=== PATIENT | male | born 1960 | race Caucasian/White ===

== ENCOUNTER 2020-08-14 21:11 | Inpatient (IN) ==
[2020-08-14] MEDS ORDERED: dexAMETHasone**PF** 10 MG/ML VIAL IV ONE (22:19)
[2020-08-14] MEDS ORDERED: ALBUTEROL HFA 8 GM INHALER INH ONE (22:19)
[2020-08-14] MEDS ORDERED: SODIUM CHLORIDE 0.9% 1000ML 1,000 ML IV ONE (22:21)
[2020-08-14 22:28] LABS: Basophils # (auto) 0.02 K/uL (0-0.2); Basophils % (auto) 0.4 %; Eosinophils # (auto) 0.14 K/uL (0-0.5); Eosinophils % (auto) 2.9 %; Hematocrit (blood only) 43.3 % (42-52); Hemoglobin 15.1 g/dL (14.0-18.0); Immature Granulocytes # (auto) 0.03 K/uL (0.00-0.02); Immature Granulocytes % (auto) 0.6 %; Lymphocytes # (auto) 1.77 K/uL (1.2-3.4); Lymphocytes % (auto) 36.9 %; Mean Corpuscular Hemoglobin 31.6 pg (25-34); Mean Corpuscular Hgb Conc 34.9 g/dL (32-36); Mean Corpuscular Volume 90.6 fL (80-100); Mean Platelet Volume 9.8 fL (7.4-10.4); Monocytes # (auto) 0.45 K/uL (0.11-0.59); Monocytes % (auto) 9.4 %; Neutrophils # (auto) 2.39 K/uL (1.4-6.5); Neutrophils % (auto) 49.8 %; Platelet Count 153 K/uL (130-400); Red Blood Count 4.78 M/uL (4.7-6.1)
--- NOTE | 2020-08-14 22:30 | Emergency Department Note ---
History of Present Illness General Chief complaint: Flu Like Symptoms Stated complaint: SOB, COUGH Time Seen by Provider: 08/14/20 22:00 History of Present Illness This 60 yo presents to the ER complaining of fever, cough, body aches cough and dyspnea for the past week that is still getting worse who has COPD Location: Generalized Quality: Hard to breathe Severity: Moderate Duration: 1 week Timing: Started a week ago Context: Patient was concerned and came in Modifying factors: better with rest; worse with activity Patient states he could barely walk as he became so short of breath. He does not smoke. He follows with pulmonology at [place]. Patient denies chest pain, loss of taste, loss of smell, neck stiffness, abdominal pain, vomiting, diarrhea. He has been around other people positive with Covid this week. He has not received the Covid vaccine. Home Medications Medication Instructions Recorded Confirmed Type albuterol sulfate [ProAir HFA] 2 puff INHALATION QID PRN 05/15/19 08/14/20 History budesonide-formoterol [Symbicort] 2 puff INHALATION BID 05/15/19 08/14/20 History naproxen sodium [Aleve] 440 mg PO BID PRN 08/14/20 08/14/20 History Allergies Allergy/AdvReac Type Severity Reaction Status Date / Time Iodinated Contrast Media Allergy Severe "OMNIPAQUE Verified 08/14/20 21:58 140" -- ANAPHYLAXIS latex Allergy Mild Rash Verified 08/14/20 21:58 aspirin AdvReac Intermediate Bleeding Verified 08/14/20 21:58 locust uriostegui gum Allergy Severe Anaphylaxis Uncoded 08/14/20 21:58 Past Med/Surg History Medical History (Updated 08/15/20 @ 01:40 by Katherine Cabezas PA-C) Asthma Chronic obstructive pulmonary disease inhaler daily/prn Von Willebrand disease Surgical History [place] [facility] [place] History of colonoscopy with polypectomy History of eye surgery remove metal History of lumbar surgery History of sinus surgery History of umbilical hernia repair History of wisdom tooth extraction Family History Sister Family history of diabetes mellitus Brother Family history of diabetes mellitus Grandmother (Paternal) Family history of diabetes mellitus Other No family history of adverse response to anesthesia Social History Smoking Status: Former smoker Second Hand Exposure: Yes (work environment); Hx Alcohol Use: Yes Alcohol type: beer Hx Substance Use: No Preferred Language: Macedonian Communication Ability: Effective Economic Development Manager Required: No Beliefs That Will Affect Care: None Current Living Situation: Significant Other Feels Safe at Home: Yes Assistive Devices: None Review of Systems A total of 10 systems reviewed and were otherwise negative Physical Exam Vital Signs Vital Signs - 24 hr 08/14/20 21:13 08/14/20 22:00 08/14/20 22:09 Temperature 36.4 C L Temperature Source Temporal Artery Scan Pulse Rate 110 H 94 H 85 Pulse Rate from SpO2 Sensor 93 H 87 Respiratory Rate 20 20 23 Respiratory Effort / Characteristics Blood Pressure 134/78 157/69 H Blood Pressure Mean 96 98 Blood Pressure Position Sitting Pulse Oximetry 93 90 91 Oxygen Delivery Method Room Air Room Air Room Air Sepsis Recent Fever Within 48 Hours No Sepsis New/Unexplained Change in Mental Status No Sepsis Action Taken by Nursing No Action Required 08/14/20 22:15 08/14/20 22:16 08/14/20 22:19 Temperature Temperature Source Pulse Rate 96 H 86 Pulse Rate from SpO2 Sensor 96 H 87 Respiratory Rate 26 H 28 H 24 Respiratory Effort / Characteristics Blood Pressure 136/76 Blood Pressure Mean 96 Blood Pressure Position Pulse Oximetry 91 91 91 Oxygen Delivery Method Room Air Room Air Room Air Sepsis Recent Fever Within 48 Hours Sepsis New/Unexplained Change in Mental Status Sepsis Action Taken by Nursing 08/14/20 22:30 08/14/20 22:31 08/14/20 22:45 Temperature Temperature Source Pulse Rate 94 H 88 87 Pulse Rate from SpO2 Sensor 88 89 89 Respiratory Rate 22 17 24 Respiratory Effort / Characteristics Blood Pressure 157/76 H 121/50 L Blood Pressure Mean 103 73 Blood Pressure Position Pulse Oximetry 92 92 94 Oxygen Delivery Method Room Air Room Air Sepsis Recent Fever Within 48 Hours Sepsis New/Unexplained Change in Mental Status Sepsis Action Taken by Nursing 08/14/20 22:46 08/14/20 22:49 08/14/20 23:00 Temperature Temperature Source Pulse Rate 77 87 Pulse Rate from SpO2 Sensor 75 89 Respiratory Rate 26 H 24 23 Respiratory Effort / Characteristics Blood Pressure Blood Pressure Mean Blood Pressure Position Pulse Oximetry 94 89 L 89 L Oxygen Delivery Method Room Air Room Air Sepsis Recent Fever Within 48 Hours Sepsis New/Unexplained Change in Mental Status Sepsis Action Taken by Nursing 08/14/20 23:17 08/14/20 23:19 08/14/20 23:30 Temperature Temperature Source Pulse Rate 85 93 H Pulse Rate from SpO2 Sensor 85 93 H Respiratory Rate 24 24 31 H Respiratory Effort / Characteristics Non-Labored Non-Labored Blood Pressure Blood Pressure Mean Blood Pressure Position Pulse Oximetry 89 L 89 L 92 Oxygen Delivery Method Room Air Room Air Room Air Sepsis Recent Fever Within 48 Hours Sepsis New/Unexplained Change in Mental Status Sepsis Action Taken by Nursing 08/14/20 23:45 08/15/20 00:00 08/15/20 00:30 Temperature Temperature Source Pulse Rate 90 Pulse Rate from SpO2 Sensor 90 Respiratory Rate 23 20 20 Respiratory Effort / Characteristics Non-Labored Non-Labored Blood Pressure Blood Pressure Mean Blood Pressure Position Pulse Oximetry 92 90 93 Oxygen Delivery Method Room Air Room Air Sepsis Recent Fever Within 48 Hours Sepsis New/Unexplained Change in Mental Status Sepsis Action Taken by Nursing VITALS: Vitals are noted on the nurse's note and reviewed by myself. Vital signs tachycardic. GENERAL: Ill-appearing male coughing who appears short of breath. SKIN: The skin was without rashes, erythema, edema, or bruising. There is no tenting of the skin. Capillary reflex less than 2 seconds. HEAD: Normocephalic atraumatic. EARS: External auditory canals clear, tympanic membranes pearly gaspar without erythema or effusion bilaterally. EYES: Pupils equal round and reactive to light and accommodation. Conjunctivae without injection, sclerae without icterus. Extraocular movements intact. NOSE: Patent, turbinates without inflammation or discharge. No sinus tenderness. MOUTH: Mucous membranes mildly dry. Pharynx without erythema or exudate. Uvula midline. Airway patent. Tongue does not deviate. NECK: Supple without nuchal rigidity. No lymphadenopathy. No thyromegaly. Cervical spine is nontender. No JVD. HEART: Mildly tachycardic rate and rhythm LUNGS: Diffuse inspiratory and end expiratory wheezes, no retractions or accessory muscle use. ABDOMEN: Positive bowel sounds x 4. Normal tympanic percussion. Soft, nontender, without masses or organomegaly. Stone sign negative. No guarding or rebound tenderness. No CVA tenderness MUSCULOSKELETAL: No muscle atrophy, erythema, or edema noted. NEURO: Patient was alert and oriented to person place and time. Normal sensation to light and sharp touch. No focal neurological deficits. Course Administered Medications Discontinued Medications Albuterol (Albuterol Hfa 8 Gm Inhaler) 2 puffs INH NOW ONE Stop: 08/14/20 22:20 Last Admin: 08/14/20 22:28 Dose: 2 puffs Documented by: [id number] Dexamethasone Sodium Phosphate (DexamethasonePf 10 Mg/Ml Vial) 10 mg IV NOW ONE Stop: 08/14/20 22:20 Last Admin: 08/14/20 22:28 Dose: 10 mg Documented by: [id number] Sodium Chloride (Nss 1000ml) 1,000 mls @ 999 mls/hr IV .Q1H1M ONE Stop: 08/14/20 23:21 Last Infusion: 08/14/20 23:35 Dose: 0 mls/hr Documented by: [id number] Admin: 08/14/20 22:29 Dose: 999 mls/hr Documented by: [id number] Medical Decision Making Medical Records Attestation: I reviewed the patient's medical records. Home Medications Current Medication List: was personally reviewed by me Laboratory Data Attestation: I reviewed the patient's lab results. Result diagrams: 08/14/20 21:50 08/14/20 21:50 Lab Results 08/14/20 08/14/20 08/14/20 Range/Units 21:50 21:50 21:50 WBC 4.80 (4.8-10.8) K/uL RBC 4.78 (4.7-6.1) M/uL Hgb 15.1 (14.0-18.0) g/dL Hct 43.3 (42-52) % MCV 90.6 (80-100) fL MCH 31.6 (25-34) pg MCHC 34.9 (32-36) g/dL RDW Std Deviation 43.0 (36.4-46.3) fL RDW Coeff of Jil 13.0 (11.5-14.5) % Plt Count 153 (130-400) K/uL MPV 9.8 (7.4-10.4) fL Immature Gran % (Auto) 0.6 % Neut % (Auto) 49.8 % Lymph % (Auto) 36.9 % [place] % (Auto) 9.4 % Eos % (Auto) 2.9 % Baso % (Auto) 0.4 % Neut # (Auto) 2.39 (1.4-6.5) K/uL Lymph # (Auto) 1.77 (1.2-3.4) K/uL [place] # (Auto) 0.45 (0.11-0.59) K/uL Eos # (Auto) 0.14 (0-0.5) K/uL Baso # (Auto) 0.02 (0-0.2) K/uL Immature Gran # (Auto) 0.03 H (0.00-0.02) K/uL PT 10.0 (9.0-12.0) Seconds INR 1.0 (0.9-1.1) APTT 25.4 (21.0-31.0) Seconds PTT Ratio 1.0 Sodium 140 (136-145) mmol/L Potassium 3.3 L (3.5-5.1) mmol/L Chloride 106 (98-107) mmol/L Carbon Dioxide 25 (21-32) mmol/L Anion Gap 9.0 (3-11) BUN 14 (7-18) mg/dl Creatinine 1.04 (0.6-1.4) mg/dl Est Cr Clr Drug Dosing 84.3 ml/min Est GFR ( Amer) 89.4 Est GFR (Non-Af Amer) 77.1 BUN/Creatinine Ratio 13.2 (10-20) Glucose 141 H (70-99) mg/dl Lactate (0.4-2.0) mmol/L Calcium 8.5 (8.5-10.1) mg/dl Magnesium 2.0 (1.8-2.4) mg/dl Total Bilirubin 0.9 (0.2-1) mg/dl AST 25 (15-37) U/L ALT 30 (12-78) U/L Alkaline Phosphatase 72 (45-117) U/L Troponin I < 0.015 (0-0.045) ng/ml Total Protein 6.9 (6.4-8.2) gm/dl Albumin 3.7 (3.4-5.0) gm/dl Globulin 3.2 (2.5-4.0) gm/dl Albumin/Globulin Ratio 1.2 (0.9-2) Specimen Hemolysis Urine Color Urine Appearance (Clear) Urine pH (4.5-7.5) Ur Specific [place] (1.000-1.030) Urine Protein (Negative) Urine Glucose (UA) (Negative) Urine Ketones (Negative) Urine Blood (Negative) Urine Nitrite (Negative) Urine Bilirubin (Negative) Urine Urobilinogen (Negative) Ur Leukocyte Esterase (Negative) COVID-19 Eval Order SARS-CoV-2 (PCR) (Negative) Influenza Type A (PCR) (Neg) Influenza Type B (PCR) (Neg) RSV (RT-PCR) (Neg) 08/14/20 08/14/20 08/14/20 Range/Units 21:50 22:30 22:30 WBC (4.8-10.8) K/uL RBC (4.7-6.1) M/uL Hgb (14.0-18.0) g/dL Hct (42-52) % MCV (80-100) fL MCH (25-34) pg MCHC (32-36) g/dL RDW Std Deviation (36.4-46.3) fL RDW Coeff of Jil (11.5-14.5) % Plt Count (130-400) K/uL MPV (7.4-10.4) fL Immature Gran % (Auto) % Neut % (Auto) % Lymph % (Auto) % [place] % (Auto) % Eos % (Auto) % Baso % (Auto) % Neut # (Auto) (1.4-6.5) K/uL Lymph # (Auto) (1.2-3.4) K/uL [place] # (Auto) (0.11-0.59) K/uL Eos # (Auto) (0-0.5) K/uL Baso # (Auto) (0-0.2) K/uL Immature Gran # (Auto) (0.00-0.02) K/uL PT (9.0-12.0) Seconds INR (0.9-1.1) APTT (21.0-31.0) Seconds PTT Ratio Sodium (136-145) mmol/L Potassium (3.5-5.1) mmol/L Chloride (98-107) mmol/L Carbon Dioxide (21-32) mmol/L Anion Gap (3-11) BUN (7-18) mg/dl Creatinine (0.6-1.4) mg/dl Est Cr Clr Drug Dosing ml/min Est GFR ( Amer) Est GFR (Non-Af Amer) BUN/Creatinine Ratio (10-20) Glucose (70-99) mg/dl Lactate 3.3 H* (0.4-2.0) mmol/L Calcium (8.5-10.1) mg/dl Magnesium (1.8-2.4) mg/dl Total Bilirubin (0.2-1) mg/dl AST (15-37) U/L ALT (12-78) U/L Alkaline Phosphatase (45-117) U/L Troponin I (0-0.045) ng/ml Total Protein (6.4-8.2) gm/dl Albumin (3.4-5.0) gm/dl Globulin (2.5-4.0) gm/dl Albumin/Globulin Ratio (0.9-2) Specimen Hemolysis Urine Color Urine Appearance (Clear) Urine pH (4.5-7.5) Ur Specific [place] (1.000-1.030) Urine Protein (Negative) Urine Glucose (UA) (Negative) Urine Ketones (Negative) Urine Blood (Negative) Urine Nitrite (Negative) Urine Bilirubin (Negative) Urine Urobilinogen (Negative) Ur Leukocyte Esterase (Negative) COVID-19 Eval Order [facility] at [facility] SARS-CoV-2 (PCR) POSITIVE A* (Negative) Influenza Type A (PCR) Negative (Neg) Influenza Type B (PCR) Negative (Neg) RSV (RT-PCR) Negative (Neg) 08/14/20 08/15/20 Range/Units 23:57 00:02 WBC (4.8-10.8) K/uL RBC (4.7-6.1) M/uL Hgb (14.0-18.0) g/dL Hct (42-52) % MCV (80-100) fL MCH (25-34) pg MCHC (32-36) g/dL RDW Std Deviation (36.4-46.3) fL RDW Coeff of Jil (11.5-14.5) % Plt Count (130-400) K/uL MPV (7.4-10.4) fL Immature Gran % (Auto) % Neut % (Auto) % Lymph % (Auto) % [place] % (Auto) % Eos % (Auto) % Baso % (Auto) % Neut # (Auto) (1.4-6.5) K/uL Lymph # (Auto) (1.2-3.4) K/uL [place] # (Auto) (0.11-0.59) K/uL Eos # (Auto) (0-0.5) K/uL Baso # (Auto) (0-0.2) K/uL Immature Gran # (Auto) (0.00-0.02) K/uL PT (9.0-12.0) Seconds INR (0.9-1.1) APTT (21.0-31.0) Seconds PTT Ratio Sodium (136-145) mmol/L Potassium (3.5-5.1) mmol/L Chloride (98-107) mmol/L Carbon Dioxide (21-32) mmol/L Anion Gap (3-11) BUN (7-18) mg/dl Creatinine (0.6-1.4) mg/dl Est Cr Clr Drug Dosing ml/min Est GFR ( Amer) Est GFR (Non-Af Amer) BUN/Creatinine Ratio (10-20) Glucose (70-99) mg/dl Lactate 3.0 H* (0.4-2.0) mmol/L Calcium (8.5-10.1) mg/dl Magnesium (1.8-2.4) mg/dl Total Bilirubin (0.2-1) mg/dl AST (15-37) U/L ALT (12-78) U/L Alkaline Phosphatase (45-117) U/L Troponin I (0-0.045) ng/ml Total Protein (6.4-8.2) gm/dl Albumin (3.4-5.0) gm/dl Globulin (2.5-4.0) gm/dl Albumin/Globulin Ratio (0.9-2) Specimen Hemolysis Urine Color Yellow Urine Appearance Clear (Clear) Urine pH 6.0 (4.5-7.5) Ur Specific [place] 1.021 (1.000-1.030) Urine Protein Negative (Negative) Urine Glucose (UA) Negative (Negative) Urine Ketones Trace H (Negative) Urine Blood Negative (Negative) Urine Nitrite Negative (Negative) Urine Bilirubin Negative (Negative) Urine Urobilinogen Negative (Negative) Ur Leukocyte Esterase Negative (Negative) COVID-19 Eval Order SARS-CoV-2 (PCR) (Negative) Influenza Type A (PCR) (Neg) Influenza Type B (PCR) (Neg) RSV (RT-PCR) (Neg) Imaging Data Attestation: I personally reviewed and interpreted this imaging study as follows: MDM Narrative Prior records/ancillary studies reviewed. Triage Nursing notes reviewed. The patient's history was concerning for fever. Differential diagnosis: Etiologies such as viral syndrome, otitis, pharyngitis, pneumonia, influenza, meningitis, urinary tract infection, sepsis, bacteremia, as well as others were entertained. Physical examination: As above ER treatment provided: An order was placed for continuous cardiac monitoring. The monitor shows a rate of 60-1 50 with a sinus rhythm. IV fluids, albuterol, Decadron On reassessment the patient felt better. Diagnostics interpreted by me: ECG: Ordered for dyspnea EKG: Normal sinus, poor baseline, no acute ST-T wave changes, Q wave in lead III, rate of 102. Impression sinus tachycardia with Q wave in lead III poor baseline interpreted by myself I think arrhythmia is unlikely. EKG shows normal sinus rhythm with no interval abnormalities such as QT prolongation or WPW. There are no findings to suggest Brugada syndrome. Cardiac monitoring in the emergency department reveals no tachycardic or bradycardic dysrhythmia. Hypertrophic cardiomyopathy was considered but there are no clear historical elements pointing toward this. EKG is not suggestive. The QRS voltage is not extremely large and there are no suggestive Q waves. The labs revealed positive Covid Blood cultures pending Elevated lactic Imaging studies: Chest x-ray with patchy infiltrates concerning for Covid pneumonia per my interpretation Consultation: A consultation was placed with Dr. Sorenson. The case was discussed and diagnostics were reviewed. The patient was evaluated in the ER for further treatment. This appears to be consistent with Covid pneumonia who was hypoxic. Patient was given steroids. He was medicated as above. Medicine was consulted. He will be evaluated for admission. Patient was quite short of breath with ambulation.. He did desat. By the evaluation outlined above emergent etiologies such as otitis, pharyngitis, meningitis, urinary tract infection, sepsis, bacteremia, as well as others were deemed relatively unlikely. The pt informed about the findings as listed above. All questions were answered and pleased with the treatment. The chart was completed utilizing [employer] Speech voice recognition software. Grammatical errors, random word insertions, pronoun errors, and incomplete sentences are an occassional consequence of this system due to software limitati ons, ambient noise, and hardware issues. Any formal questions or concerns about the content, text, or information contained within the body of this dictation should be directly addressed to the physician retirement assistant for clarification. Impression & Plan COVID-19, Hypoxemia Discharge Plan Visit Data Chief Complaint: Flu Like Symptoms Stated Complaint: SOB, COUGH ED Provider: Evin Marley ED Midlevel Provider: Katherine Cabezas Discharge Problem: COVID-19, Hypoxemia Patient Disposition: Admitted As Inpatient Condition: Fair Forms Stand Alone Forms: [facility] Health Essentials Prescriptions Prescriptions: No Action albuterol sulfate [ProAir HFA] 90 mcg/actuation Hfa Aerosol Inhaler 2 puff INHALATION QID PRN (Reason: Shortness Of Breath) RF: 0 budesonide-formoterol [Symbicort] 160-4.5 mcg/actuation Hfa Aerosol Inhaler 2 puff INHALATION BID RF: 0 naproxen sodium [Aleve] 220 mg Tablet 440 mg PO BID PRN (Reason: Fever Or Pain) RF: 0 Referrals Referrals: Nahun Donaldson [Primary Care Provider] -
[2020-08-14 22:41] LABS: Partial Thromboplastin Time 25.4 Seconds (21.0-31.0)
[2020-08-14 22:45] LABS: Alanine Aminotransferase 30 U/L (12-78); Albumin Globulin Ratio 1.2 (0.9-2); Albumin Level 3.7 gm/dl (3.4-5.0); Alkaline Phosphatase 72 U/L (45-117); Aspartate Aminotransferase 25 U/L (15-37); BUN Creatinine Ratio 13.2 (10-20); Bilirubin,Total 0.9 mg/dl (0.2-1); Blood Urea Nitrogen 14 mg/dl (7-18); Calcium 8.5 mg/dl (8.5-10.1); Carbon Dioxide 25 mmol/L (21-32); Chloride 106 mmol/L (98-107); Creatinine Clr Calc Pharmacy 84.3 ml/min; Est GFR (African American) 89.4; Est GFR (Non-African American) 77.1; Globulin 3.2 gm/dl (2.5-4.0); Glucose 141 mg/dl (70-99); Potassium 3.3 mmol/L (3.5-5.1); Sodium 140 mmol/L (136-145); Total Protein 6.9 gm/dl (6.4-8.2); Troponin I < 0.015 ng/ml (0-0.045)
[2020-08-14 23:22] LABS: Influenza A virus by PCR Negative (Neg); Influenza B virus by PCR Negative (Neg); RSV by PCR Negative (Neg)
[2020-08-14 23:31] LABS: SARS CoV2 RNA(COVID-19) InHosp POSITIVE (Negative)
[2020-08-15 00:15] LABS: Appearance Urine Clear (Clear); Bilirubin Urine Negative (Negative); Blood Urine Negative (Negative); Color Urine Yellow; Glucose Urine UA Negative (Negative); Ketones Urine Trace (Negative); Leukocyte Esterase Urine Negative (Negative); Nitrite Urine Negative (Negative); Protein Urine Negative (Negative); Specific Gravity Urine 1.021 (1.000-1.030); Urobilinogen Urine Negative (Negative)
--- NOTE | 2020-08-15 01:24 | History & Physical Report ---
Date of Service August 15, 2020 Assessment & Plan (1) COVID-19: 60yo C male with history of COPD presenting with Covid-19. Patient is on appx day 7-8 of symptoms. He is afebrile, HD stable, mildly hypoxic in the ER at 89-90% on room air. -Admit to medical -Maintain isolation precautions, contact and airborne -Check Procalcitonin, BNP, Ferritin, D-dimer, CK, LDH and CRP -Dexamethasone 6mg IV daily -Supplemental O2 as needed to maintain saturations 92% in patient with COPD + Covid -Albuterol PRN -Tylenol PRN -DVT PPX with Lovenox 40mg BID (2) Elevated lactic acid level: Lactate=3. Patient is HD stable. Perhaps secondary to increased WOB and Albuterol use prior to arrival. Patient does not appear septic. He was given 1L NSS -Repeat lactic acid Present on Admission?: Yes (3) Chronic obstructive pulmonary disease: Suspect mild COPD exacerbation in conjunction with Covid-19 infection. Patient is diffusely wheezing on exam, improved after Albuterol -Supplemental O2 as needed to maintain saturation 92% -Dexamethasone 6mg IV daily -Continue Albuterol q hours PRN -Continue Symbicort BID -Combivent QID -Avoid nebs where able F/E/N - Heplock. Monitor electrolytes and replete as needed, K=3.3 - will give 40mEq and repeat labs in AM. Regular diet as tolerated Ppx - Lovenox 40 BID Code - Full per discussion with patient Dispo - Admit to medical Present on Admission?: Yes History of Present Illness Chief Complaint: covid-19 Primary Care Provider: Nahun Donaldson Russell Suarez is a 60yo C male with history of of COPD presenting with Covid- 19. Patient has had fatigue, weakness, body aches, fever/chills and cough ongoing for the last 7-8 days. Today he became more short of breath which prompted him to come to the ER. He was taking his Albuterol quite a lot at home with minimal relief. In the ER patient afebrile, HD stable, NAD. Saturations of 89-90% on room air ER Course: Albuterol HFA, Dexamethasone 10mg IV, NSS x 1L Allergies Allergy/AdvReac Type Severity Reaction Status Date / Time Iodinated Contrast Media Allergy Severe "OMNIPAQUE Verified 08/14/20 21:58 140" -- ANAPHYLAXIS latex Allergy Mild Rash Verified 08/14/20 21:58 aspirin AdvReac Intermediate Bleeding Verified 08/14/20 21:58 locust uriostegui gum Allergy Severe Anaphylaxis Uncoded 08/14/20 21:58 Home Medications Medication Instructions Recorded Confirmed Type albuterol sulfate [ProAir HFA] 2 puff INHALATION QID PRN 05/15/19 08/14/20 History budesonide-formoterol [Symbicort] 2 puff INHALATION BID 05/15/19 08/14/20 History naproxen sodium [Aleve] 440 mg PO BID PRN 08/14/20 08/14/20 History Past Med/Surg History Medical History (Updated 08/15/20 @ 01:22 by Graciela Sorenson DO) Asthma Chronic obstructive pulmonary disease inhaler daily/prn Von Willebrand disease Surgical History History of cardiac cath 2012 @ [facility] [place]--no stents History of colonoscopy with polypectomy History of eye surgery remove metal History of lumbar surgery History of sinus surgery History of umbilical hernia repair History of wisdom tooth extraction Family History Sister Family history of diabetes mellitus Brother Family history of diabetes mellitus Grandmother (Paternal) Family history of diabetes mellitus Other No family history of adverse response to anesthesia Social History Smoking Status: Former smoker Second Hand Exposure: Yes (work environment); Hx Alcohol Use: Yes Alcohol type: beer Hx Substance Use: No Preferred Language: Barbadian Communication Ability: Effective Brand Activation Manager Required: No Beliefs That Will Affect Care: None Current Living Situation: Significant Other Feels Safe at Home: Yes Assistive Devices: None Review of Systems Review of Systems: All systems reviewed & are unremarkable except as noted in HPI & below +weakness +fatigue +body aches +cough +SOB +chest pain with coughing Denies nausea/vomiting/diarrhea/constipation/abdominal pain/loss of taste or sm ell Physical Exam Physical Exam: General: patient resting comfortably, NAD, non-toxic in appearance, AA&O x 4 Skin: warm, dry, intact, no rashes or lesions HEENT: NC/AT, PERRL, EOMI, anicteric sclera, conjunctiva without injection, external ear normal to inspection and nontender, nares patent, moist mucus membranes, dentition intact, no oropharyngeal lesions, neck supple, trachea midline, no LAD, no thyromegaly, no JVD Heart: +S1/S2, regular, no m/r/g Lungs: equal air entry bilaterally, no rales/rhonchi, scattered end-expiratory wheezing Abd: +BS, soft, NT/ND, no masses/organomegaly/ascites Ext: warm, 2+ pulses in UE/LE bilaterally, no clubbing/cyanosis or edema Neuro: nonfocal, patient AA&O x 4, speech intact, no facial droop, moving all extremities on command with equal strength 5/5 Results & Data Results & Data ([facility]) Vital Signs (Past 12 Hours) Vital Signs Temp Pulse Resp BP Pulse Ox 08/15/20 00:30 20 93 08/15/20 00:00 20 90 08/14/20 23:45 90 23 92 08/14/20 23:30 93 H 31 H 92 08/14/20 23:19 24 89 L 08/14/20 23:17 85 24 89 L 08/14/20 23:00 87 23 89 L 08/14/20 22:49 24 89 L 08/14/20 22:46 77 26 H 94 08/14/20 22:45 87 24 121/50 L 94 08/14/20 22:31 88 17 92 08/14/20 22:30 94 H 22 157/76 H 92 08/14/20 22:19 24 91 08/14/20 22:16 86 28 H 91 08/14/20 22:15 96 H 26 H 136/76 91 08/14/20 22:09 85 23 91 08/14/20 22:00 94 H 20 157/69 H 90 08/14/20 21:13 36.4 C L 110 H 20 134/78 93 Laboratory Results Lab Results 08/14/20 08/14/20 08/14/20 Range/Units 21:50 21:50 21:50 WBC 4.80 (4.8-10.8) K/uL RBC 4.78 (4.7-6.1) M/uL Hgb 15.1 (14.0-18.0) g/dL Hct 43.3 (42-52) % MCV 90.6 (80-100) fL MCH 31.6 (25-34) pg MCHC 34.9 (32-36) g/dL RDW Std Deviation 43.0 (36.4-46.3) fL RDW Coeff of Jil 13.0 (11.5-14.5) % Plt Count 153 (130-400) K/uL MPV 9.8 (7.4-10.4) fL Immature Gran % (Auto) 0.6 % Neut % (Auto) 49.8 % Lymph % (Auto) 36.9 % Lyman % (Auto) 9.4 % Eos % (Auto) 2.9 % Baso % (Auto) 0.4 % Neut # (Auto) 2.39 (1.4-6.5) K/uL Lymph # (Auto) 1.77 (1.2-3.4) K/uL Lyman # (Auto) 0.45 (0.11-0.59) K/uL Eos # (Auto) 0.14 (0-0.5) K/uL Baso # (Auto) 0.02 (0-0.2) K/uL Immature Gran # (Auto) 0.03 H (0.00-0.02) K/uL PT 10.0 (9.0-12.0) Seconds INR 1.0 (0.9-1.1) APTT 25.4 (21.0-31.0) Seconds PTT Ratio 1.0 Sodium 140 (136-145) mmol/L Potassium 3.3 L (3.5-5.1) mmol/L Chloride 106 (98-107) mmol/L Carbon Dioxide 25 (21-32) mmol/L Anion Gap 9.0 (3-11) BUN 14 (7-18) mg/dl Creatinine 1.04 (0.6-1.4) mg/dl Est Cr Clr Drug Dosing 84.3 ml/min Est GFR ( Amer) 89.4 Est GFR (Non-Af Amer) 77.1 BUN/Creatinine Ratio 13.2 (10-20) Glucose 141 H (70-99) mg/dl Lactate (0.4-2.0) mmol/L Calcium 8.5 (8.5-10.1) mg/dl Magnesium 2.0 (1.8-2.4) mg/dl Total Bilirubin 0.9 (0.2-1) mg/dl AST 25 (15-37) U/L ALT 30 (12-78) U/L Alkaline Phosphatase 72 (45-117) U/L Troponin I < 0.015 (0-0.045) ng/ml Total Protein 6.9 (6.4-8.2) gm/dl Albumin 3.7 (3.4-5.0) gm/dl Globulin 3.2 (2.5-4.0) gm/dl Albumin/Globulin Ratio 1.2 (0.9-2) Specimen Hemolysis Urine Color Urine Appearance (Clear) Urine pH (4.5-7.5) Ur Specific Franklin (1.000-1.030) Urine Protein (Negative) Urine Glucose (UA) (Negative) Urine Ketones (Negative) Urine Blood (Negative) Urine Nitrite (Negative) Urine Bilirubin (Negative) Urine Urobilinogen (Negative) Ur Leukocyte Esterase (Negative) COVID-19 Eval Order SARS-CoV-2 (PCR) (Negative) Influenza Type A (PCR) (Neg) Influenza Type B (PCR) (Neg) RSV (RT-PCR) (Neg) 08/14/20 08/14/20 08/14/20 Range/Units 21:50 22:30 22:30 WBC (4.8-10.8) K/uL RBC (4.7-6.1) M/uL Hgb (14.0-18.0) g/dL Hct (42-52) % MCV (80-100) fL MCH (25-34) pg MCHC (32-36) g/dL RDW Std Deviation (36.4-46.3) fL RDW Coeff of Jil (11.5-14.5) % Plt Count (130-400) K/uL MPV (7.4-10.4) fL Immature Gran % (Auto) % Neut % (Auto) % Lymph % (Auto) % Lyman % (Auto) % Eos % (Auto) % Baso % (Auto) % Neut # (Auto) (1.4-6.5) K/uL Lymph # (Auto) (1.2-3.4) K/uL Lyman # (Auto) (0.11-0.59) K/uL Eos # (Auto) (0-0.5) K/uL Baso # (Auto) (0-0.2) K/uL Immature Gran # (Auto) (0.00-0.02) K/uL PT (9.0-12.0) Seconds INR (0.9-1.1) APTT (21.0-31.0) Seconds PTT Ratio Sodium (136-145) mmol/L Potassium (3.5-5.1) mmol/L Chloride (98-107) mmol/L Carbon Dioxide (21-32) mmol/L Anion Gap (3-11) BUN (7-18) mg/dl Creatinine (0.6-1.4) mg/dl Est Cr Clr Drug Dosing ml/min Est GFR ( Amer) Est GFR (Non-Af Amer) BUN/Creatinine Ratio (10-20) Glucose (70-99) mg/dl Lactate 3.3 H* (0.4-2.0) mmol/L Calcium (8.5-10.1) mg/dl Magnesium (1.8-2.4) mg/dl Total Bilirubin (0.2-1) mg/dl AST (15-37) U/L ALT (12-78) U/L Alkaline Phosphatase (45-117) U/L Troponin I (0-0.045) ng/ml Total Protein (6.4-8.2) gm/dl Albumin (3.4-5.0) gm/dl Globulin (2.5-4.0) gm/dl Albumin/Globulin Ratio (0.9-2) Specimen Hemolysis Urine Color Urine Appearance (Clear) Urine pH (4.5-7.5) Ur Specific Franklin (1.000-1.030) Urine Protein (Negative) Urine Glucose (UA) (Negative) Urine Ketones (Negative) Urine Blood (Negative) Urine Nitrite (Negative) Urine Bilirubin (Negative) Urine Urobilinogen (Negative) Ur Leukocyte Esterase (Negative) COVID-19 Eval Order CovFluRsv at [facility] SARS-CoV-2 (PCR) POSITIVE A* (Negative) Influenza Type A (PCR) Negative (Neg) Influenza Type B (PCR) Negative (Neg) RSV (RT-PCR) Negative (Neg) 08/14/20 08/15/20 Range/Units 23:57 00:02 WBC (4.8-10.8) K/uL RBC (4.7-6.1) M/uL Hgb (14.0-18.0) g/dL Hct (42-52) % MCV (80-100) fL MCH (25-34) pg MCHC (32-36) g/dL RDW Std Deviation (36.4-46.3) fL RDW Coeff of Jil (11.5-14.5) % Plt Count (130-400) K/uL MPV (7.4-10.4) fL Immature Gran % (Auto) % Neut % (Auto) % Lymph % (Auto) % Lyman % (Auto) % Eos % (Auto) % Baso % (Auto) % Neut # (Auto) (1.4-6.5) K/uL Lymph # (Auto) (1.2-3.4) K/uL Lyman # (Auto) (0.11-0.59) K/uL Eos # (Auto) (0-0.5) K/uL Baso # (Auto) (0-0.2) K/uL Immature Gran # (Auto) (0.00-0.02) K/uL PT (9.0-12.0) Seconds INR (0.9-1.1) APTT (21.0-31.0) Seconds PTT Ratio Sodium (136-145) mmol/L Potassium (3.5-5.1) mmol/L Chloride (98-107) mmol/L Carbon Dioxide (21-32) mmol/L Anion Gap (3-11) BUN (7-18) mg/dl Creatinine (0.6-1.4) mg/dl Est Cr Clr Drug Dosing ml/min Est GFR ( Amer) Est GFR (Non-Af Amer) BUN/Creatinine Ratio (10-20) Glucose (70-99) mg/dl Lactate 3.0 H* (0.4-2.0) mmol/L Calcium (8.5-10.1) mg/dl Magnesium (1.8-2.4) mg/dl Total Bilirubin (0.2-1) mg/dl AST (15-37) U/L ALT (12-78) U/L Alkaline Phosphatase (45-117) U/L Troponin I (0-0.045) ng/ml Total Protein (6.4-8.2) gm/dl Albumin (3.4-5.0) gm/dl Globulin (2.5-4.0) gm/dl Albumin/Globulin Ratio (0.9-2) Specimen Hemolysis Urine Color Yellow Urine Appearance Clear (Clear) Urine pH 6.0 (4.5-7.5) Ur Specific Franklin 1.021 (1.000-1.030) Urine Protein Negative (Negative) Urine Glucose (UA) Negative (Negative) Urine Ketones Trace H (Negative) Urine Blood Negative (Negative) Urine Nitrite Negative (Negative) Urine Bilirubin Negative (Negative) Urine Urobilinogen Negative (Negative) Ur Leukocyte Esterase Negative (Negative) COVID-19 Eval Order SARS-CoV-2 (PCR) (Negative) Influenza Type A (PCR) (Neg) Influenza Type B (PCR) (Neg) RSV (RT-PCR) (Neg) Diagnostic Findings CXR - No acute process Code Status & VTE Plan VTE Prophylaxis Plan VTE Prophylaxis will be ordered: Yes PG Care Time/CCT Total # of Minutes Spent Total Time Spent with Patient: Total time spent is greater than 50% in coordination of care (as documented) at patient's floor/unit and/or counseling patient: Coding Level of Care Code 80099 Initial Inpt Care Lvl 2 Diagnoses COVID-19 U07.1 Elevated lactic acid level R79.89 Chronic obstructive pulmonary disease J44.9
[2020-08-15] MEDS ORDERED: ONDANSETRON INJ 2 MG/ML 2 ML VIAL IV PRN (02:47)
[2020-08-15] MEDS ORDERED: POTASSIUM CHLORIDE CRTAB 20 MEQ TABCR PO STA (02:47)
[2020-08-15] MEDS ORDERED: ACETAMINOPHEN 325 MG TAB PO PRN (02:47)
[2020-08-15] MEDS ORDERED: ALBUTEROL HFA 8 GM INHALER INH PRN (02:56)
[2020-08-15 03:15] LABS: C Reactive Protein < 0.29 mg/dl (0-0.29); Creatine Kinase 121 U/L (39-308); Ferritin 109.4 ng/ml (8-388); Phosphorus 1.8 mg/dl (2.5-4.9)
[2020-08-15 06:35] LABS: D Dimer 470 ug/L FEU (0-500)
[2020-08-15] MEDS: ALBUTEROL HFA 8 GM INHALER INH SCH ×4 (07:24→19:55)
[2020-08-15] MEDS: IPRATROPIUM BROMIDE HFA INHALER INH SCH ×4 (07:24→19:55)
--- NOTE | 2020-08-15 08:18 | XRay Report ---
XR chest 1V portable HISTORY: SEPSIS COMPARISON: Chest 01/09/2019. FINDINGS: A few bibasilar linear and patchy densities. The upper lung zones remain clear. No pleural effusions. No pneumothorax. The heart is normal in size. No evidence for pulmonary edema. IMPRESSION: Bibasilar linear and patchy densities. This is nonspecific and could be due to atelectasis or a pneum onia. ACT 112: Negative or not required by law. Electronically signed by: Alex Melo M.D. 08/15/2020 8:17 AM
[2020-08-15] MEDS: dexAMETHasone 6 MG in SYRINGE 0 ML IV SCH (08:55)
[2020-08-15] MEDS: FLUTICASONE/VILANTEROL 200/25MCG 14 PUFFS/INHALER INH SCH (08:58)
[2020-08-15] MEDS: ENOXAPARIN INJ 40 MG/0.4 ML SYR SQ SCH ×2 (09:33→21:58)
--- NOTE | 2020-08-15 14:34 | Electrocardiogram Report ---
Test Reason : Blood Pressure : / mmHG Vent. Rate : 102 BPM Atrial Rate : 102 BPM P-R Int : 154 ms QRS Dur : 102 ms QT Int : 386 ms P-R-T Axes : 058 038 054 degrees QTc Int : 503 ms Poor data quality, interpretation may be adversely affected Sinus tachycardia with Premature supraventricular complexes Nonspecific ST and T wave abnormality Abnormal ECG No previous ECGs available Confirmed by Oh Becker ([id number]) on 08/15/2020 2:34:07 PM Referred By: REFERRED SELF Confirmed By:Oh Becker
[2020-08-16 07:32] LABS: Basophils # (auto) 0.01 K/uL (0-0.2); Basophils % (auto) 0.1 %; Hematocrit (blood only) 40.6 % (42-52); Hemoglobin 13.9 g/dL (14.0-18.0); Immature Granulocytes # (auto) 0.06 K/uL (0.00-0.02); Immature Granulocytes % (auto) 0.5 %; Lymphocytes # (auto) 1.29 K/uL (1.2-3.4); Lymphocytes % (auto) 11.5 %; Mean Corpuscular Hemoglobin 31.1 pg (25-34); Mean Corpuscular Hgb Conc 34.2 g/dL (32-36); Mean Corpuscular Volume 90.8 fL (80-100); Mean Platelet Volume 10.1 fL (7.4-10.4); Monocytes # (auto) 0.94 K/uL (0.11-0.59); Monocytes % (auto) 8.4 %; Neutrophils # (auto) 8.94 K/uL (1.4-6.5); Neutrophils % (auto) 79.5 %; Platelet Count 165 K/uL (130-400); RDW Coefficient of Variation 13.4 % (11.5-14.5); RDW Standard Deviation 44.5 fL (36.4-46.3); Red Blood Count 4.47 M/uL (4.7-6.1); White Blood Count 11.24 K/uL (4.8-10.8)
[2020-08-16] MEDS: IPRATROPIUM BROMIDE HFA INHALER INH SCH (07:38)
[2020-08-16] MEDS: ALBUTEROL HFA 8 GM INHALER INH SCH (07:38)
[2020-08-16 08:09] LABS: BUN Creatinine Ratio 14.9 (10-20); Calcium 8.3 mg/dl (8.5-10.1); Creatinine Clr Calc Pharmacy 82.7 ml/min; Est GFR (African American) 87.4; Est GFR (Non-African American) 75.4; Potassium 4.1 mmol/L (3.5-5.1)
[2020-08-16] MEDS: ENOXAPARIN INJ 40 MG/0.4 ML SYR SQ SCH (08:18)
[2020-08-16] MEDS: dexAMETHasone 6 MG in SYRINGE 0 ML IV SCH (08:18)
[2020-08-16] MEDS: FLUTICASONE/VILANTEROL 200/25MCG 14 PUFFS/INHALER INH SCH (08:18)
--- NOTE | 2020-08-16 10:57 | Discharge Summary ---
Date of Service August 16, 2020 Admission HPI Per Admitting Provider Russell Suarez is a 60yo C male with history of of COPD presenting with Covid- 19. Patient has had fatigue, weakness, body aches, fever/chills and cough ongoing for the last 7-8 days. Today he became more short of breath which prompted him to come to the ER. He was taking his Albuterol quite a lot at home with minimal relief. In the ER patient afebrile, HD stable, NAD. Saturations of 89-90% on room air ER Course: Albuterol HFA, Dexamethasone 10mg IV, NSS x 1L Principal Diagnosis COVID 19 pneumonia, COPD exacerbation Discharge Exam Constitutional WD/WN, vitals as above + ill appearing and comfortable; no acute distress Neck trachea midline, no thyromegaly Respiratory normal respiratory effort and + cough; no respiratory distress, no labored breathing and not tachypneic Auscultation: + rhonchi and + wheezes (exhalation); no crackles and no rales Cardiovascular RRR, no murmur, no edema Gastrointestinal (Abdomen) normal bowel sounds, soft, nontender, no hepatosplenomegaly Musculoskeletal no cyanosis or clubbing, extremities motor strength 5/5 Skin no rashes, warm and dry Neurologic patellar DTR's 2+ bilat, sensation intact and PERRL, EOMI, accommodation nl, no face palsy, no dysarthria Psychiatric A+Ox3, euthymic affect Lymphatic no cervical or axillary lymphadenopathy Discharge Data Allergies Allergy/AdvReac Type Severity Reaction Status Date / Time Iodinated Contrast Media Allergy Severe "OMNIPAQUE Verified 08/14/20 21:58 140" -- ANAPHYLAXIS latex Allergy Mild Rash Verified 08/14/20 21:58 aspirin AdvReac Intermediate Bleeding Verified 08/14/20 21:58 locust uriostegui gum Allergy Severe Anaphylaxis Uncoded 08/14/20 21:58 Consultations 08/15/20 00:16 ED Decision to Admit Stat Hospital Course (1) COVID-19: 60yo C male with history of COPD presenting with Covid-19. Patient is on appx day 7-8 of symptoms. He is afebrile, HD stable, borderline hypoxic in the ER at 89-90% on room air. treated with dexamethasone 6mg IV daily nebulizers improved quickly, never required oxygen, saturations 92-94% on room air entire visit BNP, D dimer, procalcitonin, LDH all normal discharge to home on dexamethasone 6mg PO daily x 8 more days stay well nourished, well hydrated, well rested Zinc for immune support, Mucinex to break up secretions IS and flutter valve to take home cannot take aspirin due to allergy follow up with PCP in a week told him to monitor for any worsening shortness of breath (2) Elevated lactic acid level: likely due to acute illness suspect the rise to 6 was lab error blood pressure stable throughout, no abdominal pain, no leg pain heart rate stable does not represent sepsis (3) Chronic obstructive pulmonary disease: Suspect mild COPD exacerbation in conjunction with Covid-19 infection. Patient is diffusely wheezing on exam, improved after Albuterol -Supplemental O2 as needed to maintain saturation 92% -Dexamethasone 6mg IV daily -Continue Albuterol q hours PRN -Continue Symbicort BID -Combivent QID -Avoid nebs where able (4) Pneumonia: due to COVID 19 responded well to dexamethasone procalcitonin normal, no need for antibiotics Total Time Total Time Spent Total Time Spent (In Minutes): 32 Discharge Plan Discharge Items Patient Disposition: Home - Self-Care Reason For Visit: COVID 19, HYPOXIA Discharge Diagnosis: COVID 19 pneumonia COPD exacerbation Condition on Discharge: Good Goals: complete 8 more days of dexamethasone stay well nourished, well hydrated, get rest Activity: Resume your previous activity Driving/Machine Use: No limitations Weightbearing: Full weightbearing Non-emergency contact: Primary Care Provider Call non-emergency contact if: you have any medication questions Follow-up/Referrals: Nahun Donaldson [Primary Care Provider] - 08/24/20 10:10 am (one week PLEASE CALL DR [facility] OFFICE AND GIVE THEM YOUR EMAIL ADDRESS, THIS APT IS A TELE-HEALTH APT) Diet: Regular Addtl Attending Provider Instructions: Medications: - DEXAMETHASONE: 6mg daily for 8 more days to complete 10 days total - ZINC: recommend taking 220mg daily, this is over the counter, immune support - MUCINEX: also over the counter, take twice a day to help break up mucous COVID 19 pneumonia, COPD exacerbation never required oxygen, monitored for 36 hours, saturations did drop below 94% so you were started on dexamethasone complete 8 more days of steroids take Zince and Mucinex over the counter use incentive spirometer several times a day and flutter valve several times a day to promote deep breathing and mobilize sputum stay well nourished, well hydrated and get plenty of rest per CDC guidelines, you should remain isolated 10 days from onset of symptoms if you start to feel like you are more short of breath, getting worse instead of better, check your pulse oximetry (you can purchase a finger pulse ox at drug store) if your saturations are less than 88% you should return to the emergency room as stated above, you have been stable here for 36 hours, no further need for hospitalization at this time follow up with PCP in 1-2 weeks Pending Studies at Discharge: No Stand-Alone Forms: [employer], Smoking Cessation Medications and DC Order Prescriptions: New dexamethasone 4 mg tablet 6 mg PO DAILY 8 Days Qty: 12 RF: 0 Continued albuterol sulfate [ProAir HFA] 90 mcg/actuation Hfa Aerosol Inhaler 2 puff INHALATION QID PRN (Reason: Shortness Of Breath) RF: 0 budesonide-formoterol [Symbicort] 160-4.5 mcg/actuation Hfa Aerosol Inhaler 2 puff INHALATION BID RF: 0 naproxen sodium [Aleve] 220 mg Tablet 440 mg PO BID PRN (Reason: Fever Or Pain) RF: 0 Discharge Orders: Discharge Order (Routine); Ordered 08/16/20 Ordered By: Kelton Weaver Admission Data Admit Date/Time: 08/15/20 01:03 Attending Provider: Kelton Weaver Admit Provider: Graciela Sorenson Primary Care Provider: Nahun Donaldson Other Providers: Graciela Sorenson Coding Level of Care Code D/C Day Management >30 mins Diagnoses COVID-19 U07.1 Elevated lactic acid level R79.89 Chronic obstructive pulmonary disease J44.9 Pneumonia J18.9
== END 2020-08-16 13:25 | disposition home or self-care (01) | DRG 177 ==
LOC: ED 21:11 → SUATTDRO 08-15 01:03 → 2S 08-15 01:03 → 2E 08-15 21:50

== ENCOUNTER 2024-07-17 02:30 | Inpatient (IN) ==
[2024-07-17] MEDS: methylPREDNISolone 125 MG/2 ML VIAL IV STA (03:03)
[2024-07-17] MEDS: ACETAMINOPHEN 500 MG TAB PO STA (03:03)
[2024-07-17] MEDS: ALBUT/IPRATROP 3MG/0.5MG NEB 3 ML VIAL NEB STA ×2 (03:03→05:25)
[2024-07-17] MEDS: PIPERACILLIN/TAZOBACTAM 4.5 GM/100 ML BAG IV ONE (03:05)
[2024-07-17] MEDS: SODIUM CHLORIDE 0.9% 1,000 ML IV SCH (03:06)
--- NOTE | 2024-07-17 03:12 | Emergency Department Note ---
History of Present Illness General Chief complaint: Respiratory Problems Stated complaint: HARD TO BREATHE Time Seen by Provider: 07/17/24 02:39 History of Present Illness This 64-year-old male with COPD who currently does not smoke for the past 30 years presents ER for fever, chills, cough, congestion, dyspnea for the past 5 days steadily getting worse. He has tried albuterol with no relief of symptoms. Sats are 88% on room air. Patient denies abdominal pain, vomiting, diarrhea, sore throat. Home Medications Medication Instructions Recorded Confirmed Type acetaminophen 500 mg tablet 1,000 mg PO Q6H PRN Fever Or Pain 08/21/22 08/21/22 History (Tylenol Extra Strength) [id number]-acetaminophen 7.5 30 ml PO UD PRN flu like symptoms 08/21/22 08/21/22 History mg-60 [id number]/30mL oral liqd Allergies Allergy/AdvReac Type Severity Reaction Status Date / Time Iodinated Contrast Media Allergy Severe "OMNIPAQUE Verified 08/21/22 23:54 140" -- ANAPHYLAXIS latex Allergy Mild Rash Verified 08/21/22 23:54 aspirin AdvReac Intermediate Bleeding Verified 08/21/22 23:54 locust uriostegui gum Allergy Severe Anaphylaxis Uncoded 08/21/22 23:54 Past Med/Surg History Problem List (Updated 07/17/24 @ 04:21 by Katherine Cabezas PA-C) Coronavirus infection (Acute) Community acquired pneumonia (Acute) Acute exacerbation of chronic obstructive airways disease (Acute) Pneumonia Hypokalemia COVID-19 (Acute) Chronic obstructive pulmonary disease inhaler daily/prn Von Willebrand disease (Chronic) Neck pain (Acute) Medical History Asthma Chronic obstructive pulmonary disease inhaler daily/prn Elevated lactic acid level Hypoxemia Von Willebrand disease Surgical History [place] of [place] [facility] [place] History of colonoscopy with polypectomy History of eye surgery remove metal History of lumbar surgery History of sinus surgery History of umbilical hernia repair History of wisdom tooth extraction Family History Sister Family history of diabetes mellitus Brother Family history of diabetes mellitus Grandmother (Paternal) Family history of diabetes mellitus Other No family history of adverse response to anesthesia Social History Smoking Status: Never smoker Second Hand Exposure: No; Do You Dip or Chew Tobacco: No; Hx Alcohol Use: Yes Alcohol type: beer Hx Substance Use: No Preferred Language: Japanese Communication Ability: Effective Dragline Operator Required: No Beliefs That Will Affect Care: None Current Living Situation: Spouse Feels Safe at Home: Yes Assistive Devices: None Review of Systems A total of 10 systems reviewed and were otherwise negative Physical Exam Vital Signs Vital Signs - 24 hr 07/17/24 02:33 07/17/24 03:00 07/17/24 03:00 Temperature 38.0 C H Temperature Source Oral Pulse Rate 118 H Pulse Rate [Apical] 101 H Pulse Rhythm Respiratory Rate 20 19 Respiratory Effort / Characteristics Non-Labored Spontaneous Non-Labored Spontaneous Non-Labored Spontaneous Respiratory Depth Normal Deep Normal Respiratory Pattern Regular Regular Regular Blood Pressure 159/92 H Blood Pressure [Left Arm] 100/80 Blood Pressure Mean 114 Blood Pressure Mean [Left Arm] 86 Blood Pressure Position Sitting Pulse Oximetry 91 95 Oxygen Delivery Method Room Air Room Air Room Air Sepsis Recent Fever Within 48 Hours Yes Sepsis New/Unexplained Change in Mental Status N/A Sepsis Action Taken by Nursing No Action Required 07/17/24 03:00 07/17/24 04:03 07/17/24 04:15 Temperature Temperature Source Pulse Rate 101 H 96 H 91 H Pulse Rate [Apical] Pulse Rhythm Regular Respiratory Rate 20 25 H 31 H Respiratory Effort / Characteristics Respiratory Depth Respiratory Pattern Blood Pressure 122/66 107/84 Blood Pressure [Left Arm] Blood Pressure Mean 76 89 Blood Pressure Mean [Left Arm] Blood Pressure Position Pulse Oximetry 94 92 92 Oxygen Delivery Method Room Air Room Air Room Air Sepsis Recent Fever Within 48 Hours Sepsis New/Unexplained Change in Mental Status Sepsis Action Taken by Nursing 07/17/24 04:30 07/17/24 04:32 07/17/24 04:45 Temperature Temperature Source Pulse Rate 88 85 87 Pulse Rate [Apical] Pulse Rhythm Respiratory Rate 23 26 H Respiratory Effort / Characteristics Respiratory Depth Respiratory Pattern Blood Pressure 110/46 L 113/50 L Blood Pressure [Left Arm] Blood Pressure Mean 58 61 Blood Pressure Mean [Left Arm] Blood Pressure Position Pulse Oximetry 92 95 Oxygen Delivery Method Room Air Room Air Sepsis Recent Fever Within 48 Hours Sepsis New/Unexplained Change in Mental Status Sepsis Action Taken by Nursing 07/17/24 05:00 07/17/24 05:15 07/17/24 05:30 Temperature Temperature Source Pulse Rate 83 82 80 Pulse Rate [Apical] Pulse Rhythm Respiratory Rate 24 26 H 16 Respiratory Effort / Characteristics Respiratory Depth Respiratory Pattern Blood Pressure 120/58 L 120/58 L 126/70 Blood Pressure [Left Arm] Blood Pressure Mean 77 67 84 Blood Pressure Mean [Left Arm] Blood Pressure Position Pulse Oximetry 92 92 97 Oxygen Delivery Method Room Air Room Air Room Air Sepsis Recent Fever Within 48 Hours Sepsis New/Unexplained Change in Mental Status Sepsis Action Taken by Nursing 07/17/24 05:45 Temperature Temperature Source Pulse Rate 85 Pulse Rate [Apical] Pulse Rhythm Respiratory Rate 24 Respiratory Effort / Characteristics Respiratory Depth Respiratory Pattern Blood Pressure 128/71 Blood Pressure [Left Arm] Blood Pressure Mean 89 Blood Pressure Mean [Left Arm] Blood Pressure Position Pulse Oximetry 94 Oxygen Delivery Method Room Air Sepsis Recent Fever Within 48 Hours Sepsis New/Unexplained Change in Mental Status Sepsis Action Taken by Nursing VITALS: Vitals are noted on the nurse's note and reviewed by myself. Vital signs febrile. GENERAL: White male coughing who appears short of breath, in no acute distress, nondiaphoretic, well-developed well-nourished. SKIN: The skin was without rashes, erythema, edema, or bruising. There is no tenting of the skin. Capillary reflex less than 2 seconds. HEAD: Normocephalic atraumatic. EARS: External auditory canals clear EYES: Pupils equal round and reactive to light and accommodation. Conjunctivae without injection, sclerae without icterus. Extraocular movements intact. NOSE: Patent, no discharge. MOUTH: Mucous membranes moist. Pharynx without erythema or exudate. Uvula midline. Airway patent. Tongue does not deviate. NECK: Supple without nuchal rigidity. No lymphadenopathy. No thyromegaly. Cervical spine is nontender. No JVD. HEART: Regular rate and rhythm LUNGS: Diffuse inspiratory and end expiratory wheezes. No retractions or accessory muscle use. ABDOMEN: Positive bowel sounds x 4. Normal tympanic percussion. Soft, nontender, without masses or organomegaly. Stone sign negative. No guarding or rebound tenderness. No CVA tenderness MUSCULOSKELETAL: No muscle atrophy, erythema, or edema noted. NEURO: Patient was alert and oriented to person place and time. Normal sensation to light and sharp touch. No focal neurological deficits. Course Administered Medications Discontinued Medications Acetaminophen (Acetaminophen 500 Mg Tab) 1,000 mg PO NOW STA Stop: 07/17/24 02:48 Last Admin: 07/17/24 03:03 Dose: 1,000 mg Documented By: SHEA Albuterol (Albut/Ipratrop 3mg/0.5mg Neb 3 Ml Vial) 3 ml NEB NOW STA; Protocol Stop: 07/17/24 02:47 Last Admin: 07/17/24 03:03 Dose: 3 ml Documented By: SHEA Albuterol (Albut/Ipratrop 3mg/0.5mg Neb 3 Ml Vial) 3 ml NEB NOW STA; Protocol Stop: 07/17/24 04:21 Last Admin: 07/17/24 05:25 Dose: 3 ml Documented By: MARCELA Sodium Chloride (Nss) 1,000 mls @ 999 mls/hr IV .Q1H1M LEVI Stop: 07/17/24 04:00 Last Infusion: 07/17/24 04:30 Dose: Infused Documented By: Admin: 07/17/24 03:06 Dose: 999 mls/hr Documented By: SHEA Piperacillin Sod/Tazobactam Sod (Zosyn) 4.5 gm in 100 mls @ 200 mls/hr IV NOW ONE; Protocol Stop: 07/17/24 03:15 Last Infusion: 07/17/24 03:40 Dose: Infused Documented By: Admin: 07/17/24 03:05 Dose: 200 mls/hr Documented By: SHEA Ibuprofen (Ibuprofen 800 Mg Tab) 800 mg PO NOW STA Stop: 07/17/24 03:33 Last Admin: 07/17/24 05:21 Dose: 800 mg Documented By: MARCELA Methylprednisolone (Methylprednisolone 125 Mg/2 Ml Vial) 125 mg IV NOW STA Stop: 07/17/24 02:47 Last Admin: 07/17/24 03:03 Dose: 125 mg Documented By: SHEA Medical Decision Making Medical Records Attestation: I reviewed the patient's medical records. Home Medications Current Medication List: was personally reviewed by me Laboratory Data Attestation: I reviewed the patient's lab results. 07/17/24 02:57 07/17/24 02:57 Lab Results 07/17/24 07/17/24 Range/Units 02:57 03:02 WBC 7.85 (4.8-10.8) K/ul RBC 5.10 (4.70-6.10) M/uL Hgb 16.1 (14.0-18.0) g/dl Hct 46.8 (42.0-52.0) % MCV 91.8 (80.0-100.0) fL MCH 31.6 (25.0-34.0) pg MCHC 34.4 (32.0-36.0) g/dL RDW Std Deviation 44.0 (36.4-46.3) fL RDW Coeff of Jil 13.0 (11.5-14.5) % Plt Count 212 (130-400) K/uL MPV 9.3 L (9.4-12.4) fL Immature Gran % (Auto) 0.1 % Neut % (Auto) 70.3 % Lymph % (Auto) 21.5 % [place] % (Auto) 6.4 % Eos % (Auto) 1.3 % Baso % (Auto) 0.4 % Neut # (Auto) 5.52 (1.40-6.50) K/uL Lymph # (Auto) 1.69 (1.20-3.40) K/uL [place] # (Auto) 0.50 (0.11-0.59) K/uL Eos # (Auto) 0.10 (0.00-0.50) K/uL Baso # (Auto) 0.03 (0.00-0.20) K/uL Immature Gran # (Auto) 0.01 (0.01-0.20) K/uL VBG pH 7.44 H (7.36-7.41) VBG pCO2 38 (38-50) mmHg VBG pO2 24 mmHg VBG HCO3 26 mmol/L VBG O2 Saturation < 60.0 % VBG Base Excess 1.7 mEq/L Sodium 134 L (136-145) mmol/L Potassium 4.0 (3.5-5.1) mmol/L Chloride 101 (98-107) mmol/L Carbon Dioxide 26 (21-32) mmol/L Anion Gap 7 (3-11) BUN 16 (6-23) mg/dl Creatinine 1.21 (0.6-1.4) mg/dl Est Cr Clr Drug Dosing Not Reportable eGFR 66.45 BUN/Creatinine Ratio 13.2 (10-20) Glucose 95 (70-99(Fasting)) mg/dl Lactate 1.2 (0.4-2.0) mmol/L Calcium 8.9 (8.6-10.3) mg/dl Magnesium 1.8 (1.7-2.4) mg/dl Total Bilirubin 1.4 H (0.2-1.0) mg/dl Direct Bilirubin 0.2 (0-0.2) mg/dl AST 29 (13-39) U/L ALT 21 (7-52) U/L Alkaline Phosphatase 65 (34-104) U/L Troponin I High Sens 2.9 (0-20) pg/ml B-Natriuretic Peptide 29 (0-100) pg/ml Total Protein 8.0 (6.0-8.3) gm/dl Albumin 4.7 (3.4-5.0) gm/dl Procalcitonin 0.08 (0-0.5) ng/ml Adenovirus (PCR) Not Detected (NotDetected) B. pertussis DNA (PCR) Not Detected (NotDetected) B.parapertussis DNA PCR Not Detected (NotDetected) C. pneumoniae DNA (PCR) Not Detected (NotDetected) Coronavirus OC43 (PCR) DETECTED A (NotDetected) Coronavirus HKU1 (PCR) Not Detected (NotDetected) Coronavirus 229E (PCR) Not Detected (NotDetected) SARS-CoV-2 (PCR) Not Detected (NotDetected) Coronavirus NL63 (PCR) Not Detected (NotDetected) Human Metapneumovir PCR Not Detected (NotDetected) Influenza Type A (PCR) Not Detected (NotDetected) Influenza Type B (PCR) Not Detected (NotDetected) M. pneumoniae (PCR) Not Detected (NotDetected) Parainfluenza 1 (PCR) Not Detected (NotDetected) Parainfluenza 2 (PCR) Not Detected (NotDetected) Parainfluenza 3 (PCR) Not Detected (NotDetected) Parainfluenza 4 (PCR) Not Detected (NotDetected) RSV (PCR) Not Detected (NotDetected) Entero/Rhino (PCR) Not Detected (NotDetected) Imaging Data Attestation: I personally reviewed and interpreted this imaging study as follows: Radiologist's Impression: Chest X-Ray 07/17/24 02:46 EXAM: XR chest 1V portable CLINICAL HISTORY: Sepsis TECHNIQUE: An X-ray image of the chest is obtained in AP projection. COMPARISON: 08/21/2022. FINDINGS: Pulmonary Parenchyma: Prominent bronchovascuar markings in bilateral lung donovan. Small opacity is seen in the left lower lung zone. No evidence of pleural effusion or pleural thickening. Heart and Mediastinum: Heart size and shape are normal. No mediastinal widening or masses. No hilar or mediastinal lymphadenopathy. Bony Thorax: Bony thorax appears intact without fractures or deformities. Soft Tissues: Soft tissues overlying the chest wall are unremarkable. IMPRESSION: 1. Prominent perihilar bronchovascular markings. Stable. 2. Small opacity is seen in the left lower lung zone (new). This could be due to infection or inflammatory process. Need clinical correlation. 3. Otherwise, no significant interval changes. Electronically signed by Abdirahman Dean 07-17-2024 06:20 AM MDM Narrative Prior records/ancillary studies reviewed. Triage Nursing notes reviewed. Additional history obtained from family. The patient's history was concerning for fever. Differential diagnosis: Etiologies such as viral syndrome, otitis, pharyngitis, pneumonia, influenza, meningitis, urinary tract infection, sepsis, bacteremia, as well as others were entertained. Physical examination: As above ER treatment provided: An order was placed for continuous cardiac monitoring. The monitor shows a rate of 60-100 with a sinus rhythm per my interpretation. Nebulizer, Solu-Medrol, Zosyn, IV fluids were ordered On reassessment the patient felt better. Diagnostics interpreted by me: ECG: Ordered for dyspnea EKG: Normal sinus, Q waves in the inferior leads, rate of 107. Impression sinus tachycardia Q waves in inferior leads independently interpreted by myself The labs Independently Interpreted by myself revealed no worrisome leukocytosis, stable H&H, VBG reviewed. Negative lactic. Blood cultures pending Positive coronavirus Imaging studies: Imaging was reviewed and concerning for left lower lobe pneumonia per my independent interpretation of the chest x-ray Consultation: A consultation was placed with hospitalist. The case was discussed and diagnostics were reviewed. The patient was evaluated in the ER for further treatment. This appears to be consistent with COPD exacerbation with pneumonia with coronavirus. Patient sats were in the high 80s. He appeared quite short of breath. He was reassessed multiple times. Medicine was consulted case discussed. He will be evaluated for admission. By the evaluation outlined above emergent etiologies such as otitis, pharyngitis, meningitis, urinary tract infection, sepsis, bacteremia, as well as others were deemed relatively unlikely. The pt informed about the findings as listed above. All questions were answered and pleased with the treatment. The chart was completed utilizing [email or web address] Speech voice recognition software. Grammatical errors, random word insertions, pronoun errors, and incomplete sentences are an occassional consequence of this system due to software limitations, ambient noise, and hardware issues. Any formal questions or concerns about the content, text, or information contained within the body of this dictation should be directly addressed to the physician contact center assistant for clarification. Impression & Plan Acute exacerbation of chronic obstructive airways disease, Community acquired pneumonia, Coronavirus infection Discharge Plan Visit Data Chief Complaint: Respiratory Problems Stated Complaint: HARD TO BREATHE ED Provider: Brittani Proctor ED Midlevel Provider: Katherine Cabezas Discharge Problem: Acute exacerbation of chronic obstructive airways disease, Community acquired pneumonia, Coronavirus infection Patient Disposition: Being Evaluated by Hospitalist Condition: Fair Forms Stand Alone Forms: [email or web address] Prescriptions Prescriptions: No Action NyQuil 7.5-60-30-1,000 mg/30 mL Liquid 30 ml PO UD PRN (Reason: flu like symptoms) acetaminophen [Tylenol Extra Strength] 500 mg Tablet 1,000 mg PO Q6H PRN (Reason: Fever Or Pain) Referrals Referrals: Nahun Donaldson [Primary Care Provider] -
[2024-07-17 03:18] LABS: Base Excess VBG 1.7 mEq/L; HCO3 VBG 26 mmol/L; Oxygen Saturation VBG < 60.0 %; PCO2 VBG 38 mmHg (38-50); PO2 VBG 24 mmHg; pH VBG 7.44 (7.36-7.41)
[2024-07-17 03:26] LABS: Basophils # (auto) 0.03 K/uL (0.00-0.20); Basophils % (auto) 0.4 %; Eosinophils % (auto) 1.3 %; Hematocrit (blood only) 46.8 % (42.0-52.0); Hemoglobin 16.1 g/dl (14.0-18.0); Immature Granulocytes # (auto) 0.01 K/uL (0.01-0.20); Immature Granulocytes % (auto) 0.1 %; Lymphocytes # (auto) 1.69 K/uL (1.20-3.40); Lymphocytes % (auto) 21.5 %; Mean Corpuscular Hemoglobin 31.6 pg (25.0-34.0); Mean Corpuscular Hgb Conc 34.4 g/dL (32.0-36.0); Mean Corpuscular Volume 91.8 fL (80.0-100.0); Mean Platelet Volume 9.3 fL (9.4-12.4); Monocytes % (auto) 6.4 %; Neutrophils # (auto) 5.52 K/uL (1.40-6.50); Neutrophils % (auto) 70.3 %; Platelet Count 212 K/uL (130-400); White Blood Count 7.85 K/ul (4.8-10.8)
[2024-07-17 03:43] LABS: Alanine Aminotransferase 21 U/L (7-52); Albumin Level 4.7 gm/dl (3.4-5.0); Alkaline Phosphatase 65 U/L (34-104); Anion Gap 7 (3-11); Aspartate Aminotransferase 29 U/L (13-39); BUN Creatinine Ratio 13.2 (10-20); Bilirubin Direct 0.2 mg/dl (0-0.2); Bilirubin,Total 1.4 mg/dl (0.2-1.0); Blood Urea Nitrogen 16 mg/dl (6-23); Calcium 8.9 mg/dl (8.6-10.3); Carbon Dioxide 26 mmol/L (21-32); Chloride 101 mmol/L (98-107); Glucose 95 mg/dl (70-99(Fasting)); Magnesium 1.8 mg/dl (1.7-2.4); Sodium 134 mmol/L (136-145)
[2024-07-17 03:48] LABS: Troponin I High Sensitivity 2.9 pg/ml (0-20)
[2024-07-17 04:05] LABS: Adenovirus PCR Not Detected (NotDetected); Bordetella parapertussis PCR Not Detected (NotDetected); Bordetella pertussis PCR Not Detected (NotDetected); Chlamydia pneumoniae PCR Not Detected (NotDetected); Coronavirus 229E PCR Not Detected (NotDetected); Coronavirus CoV-2 (COVID19)PCR Not Detected (NotDetected); Coronavirus HKU1 PCR Not Detected (NotDetected); Coronavirus NL63 PCR Not Detected (NotDetected); Coronavirus OC43PCR DETECTED (NotDetected); Human Metapneumovirus PCR Not Detected (NotDetected); Influenza A PCR Not Detected (NotDetected); Influenza B PCR Not Detected (NotDetected); Mycoplasma pneumoniae PCR Not Detected (NotDetected); Parainfluenza Virus 1 PCR Not Detected (NotDetected); Parainfluenza Virus 2 PCR Not Detected (NotDetected); Parainfluenza Virus 3 PCR Not Detected (NotDetected); Parainfluenza Virus 4 PCR Not Detected (NotDetected); Respiratory Syncytial VirusPCR Not Detected (NotDetected); Rhinovirus/Enterovirus PCR Not Detected (NotDetected)
--- NOTE | 2024-07-17 04:21 | Emergency Department Note ---
ED Visit Note I was consulted by the Advanced Practice Provider. I approved the management plan and take responsibility for the patient management. This includes the aspects of: -History/Physica/ -MDM -I independently interpreted the following studies:Studies and results .
--- NOTE | 2024-07-17 04:45 | History & Physical Report ---
Date of Service July 17, 2024 Assessment & Plan (1) Coronavirus infection: (2) Acute exacerbation of chronic obstructive airways disease: (3) Chronic obstructive pulmonary disease: Plan Pt is a 64 yo male with a past med hx of COPD not on oxygen at baseline and documented hx of vWBD who presents to the hospital on 07/17 for URI symptoms for 4-5 days and worsening SOB found to be positive for OG coronavirus. #Acute resp failure #Coronavirus infection (non covid19) in pt with COPD - not on oxygen at baseline - febrile on admission, no WBC count - blood cx pending - MRSA nares pending - CXR pending read but may suggest pneumonia as well; given zosyn dose in the ED; will do ceftriaxone - got 125 mg methylpred dose on admission; continue steroid as methylpred 40 mg BID - azithromycin started - continue home inhalers (or formulary equivalent) #Elevated bilirubin - elevated on admission 1.4 without transaminitis, direct bili wnl - trend with next labs VTE: lovenox History of Present Illness Chief Complaint: Upper resp symptoms, COPD Primary Care Provider: Nahun Donaldson Pt is a 64 yo male with a past med hx of COPD not on oxygen at baseline and documented hx of vWBD who presents to the hospital on 07/17 for URI symptoms for 4-5 days and worsening SOB found to be positive for OG coronavirus. Pt states he felt fine until about 4-5 days ago when he started with symptoms of cough, congestion, increased SOB, and chills. He states that yesterday evening he had worsening chills and felt febrile although he did not take his temp at home. He states that his chest hurts with coughing only and he just feels like it is harder to breathe compared to his baseline, prompting him to come in to be evaluated. He quit smoking over 30 years ago. He follows with [facility] pulmonology for his COPD. Alcohol use is occasional and social only. He states he saw his granddaughter yesterday who is only 4 weeks old but symptoms started before then. No symptoms diarrhea, no blood in stool or urine. Allergies Allergy/AdvReac Type Severity Reaction Status Date / Time uriostegui Allergy Severe Anaphylaxis Verified 07/17/24 13:21 Iodinated Contrast Media Allergy Severe "OMNIPAQUE Verified 08/21/22 23:54 140" -- ANAPHYLAXIS latex Allergy Mild Rash Verified 08/21/22 23:54 aspirin AdvReac Intermediate Bleeding Verified 08/21/22 23:54 Home Medications Medication Instructions Recorded Confirmed Type acetaminophen 500 mg tablet 1,000 mg PO Q6H PRN Fever Or Pain 08/21/22 08/21/22 History (Tylenol Extra Strength) [id number]-acetaminophen 7.5 30 ml PO UD PRN flu like symptoms 08/21/22 08/21/22 History mg-60 [id number]/30mL oral liqd Past Med/Surg History Problem List (Updated 07/18/24 @ 17:00 by Nathalie Marin MD) Coronavirus infection (Acute) Community acquired pneumonia (Acute) Acute exacerbation of chronic obstructive airways disease (Acute) Pneumonia Hypokalemia COVID-19 (Acute) Chronic obstructive pulmonary disease inhaler daily/prn Von Willebrand disease (Chronic) Neck pain (Acute) Medical History Asthma Chronic obstructive pulmonary disease inhaler daily/prn Elevated lactic acid level Hypoxemia Von Willebrand disease Surgical History History of cardiac cath 2012 @ [facility] – [place]no stents History of colonoscopy with polypectomy History of eye surgery remove metal History of lumbar surgery History of sinus surgery History of umbilical hernia repair History of wisdom tooth extraction Family History Sister Family history of diabetes mellitus Brother Family history of diabetes mellitus Grandmother (Paternal) Family history of diabetes mellitus Other No family history of adverse response to anesthesia Social History Smoking Status: Former smoker Tobacco Type: Cigarettes Second Hand Exposure: No; Do You Dip or Chew Tobacco: Yes (dip); Hx Alcohol Use: Yes Alcohol type: beer Hx Substance Use: No Preferred Language: Burmese Communication Ability: Effective Brick Dropper Required: No Beliefs That Will Affect Care: None Current Living Situation: Spouse Other Information That Helps Us Care for You: No Feels Safe at Home: Yes Safety Concerns: Feels Safe At This Time Assistive Devices: Glasses Assistive Devices Comment: glasses not with pt Review of Systems Review of Systems: Per HPI. Physical Exam Physical Exam: General: Alert and oriented, no acute distress but flushed HEENT: Normocephalic, Cardio: Regular rate and rhythm, no murmur, Resp: Lungs clear to auscultation b/l but air movement suboptimal globally, faint wheezes noted throughout GI: Soft and nontender, bowel sounds active Skin: Warm, pink, dry, Results & Data Results & Data Vital Signs (Past 12 Hours) Vital Signs Temp Pulse Pulse Resp BP BP Pulse Ox 07/17/24 04:32 85 07/17/24 03:00 101 H 20 94 07/17/24 03:00 101 H 19 100/80 95 07/17/24 03:00 07/17/24 02:33 38.0 C H 118 H 20 159/92 H 91 O2 Del Method 07/17/24 04:32 07/17/24 03:00 Room Air 07/17/24 03:00 Room Air 07/17/24 03:00 Room Air 07/17/24 02:33 Room Air Supervising Physician Co-Signing Physician Notes Attending addendum: I have physically seen this patient, have supervised the medical residents activities, and agree with the H&P unless as otherwise noted. Assessment and Plan: The patient is a 64-year-old male with a past medical history including COPD, not on oxygen, who presents to the emergency department with symptoms of depression and functions vomiting, chronic shortness of breath dyspnea on exertion # 4-5 days. EMERGENCY DEPARTMENT INCLUDED BIOFIRE POSITIVE FOR CORONAVIRUS OC 43, THE PATIENT IS REFERRED FOR EVALUATION FOR ADMISSION. HE WAS HAVING pulse [id number]% ON ROOM AIR. GIVEN SOLU-MEDROL IV 125 MG IV, ATIVAN 4 MG IV EVERY 12 HOURS AZITHROMYCIN 500 MG IV DAILY MUCINEX 600 MG P.O. EVERY 12 HOURS MRSA SWAB PENDING Acetaminophen 1 g every 6 hours as needed for mild pain or fever Resident Activity Tracking Resident Involvement: Resident Care Provided Care Provided: Adult Hospital Medicine
[2024-07-17] MEDS: IBUPROFEN 800 MG TAB PO STA (05:21)
--- NOTE | 2024-07-17 06:21 | XRay Report ---
EXAM: XR chest 1V portable CLINICAL HISTORY: Sepsis TECHNIQUE: An X-ray image of the chest is obtained in AP projection. COMPARISON: 08/21/2022. FINDINGS: Pulmonary Parenchyma: Prominent bronchovascuar markings in bilateral lung donovan. Small opacity is seen in the left lower lung zone. No evidence of pleural effusion or pleural thickening. Heart and Mediastinum: Heart size and shape are normal. No mediastinal widening or masses. No hilar or mediastinal lymphadenopathy. Bony Thorax: Bony thorax appears intact without fractures or deformities. Soft Tissues: Soft tissues overlying the chest wall are unremarkable. IMPRESSION: 1. Prominent perihilar bronchovascular markings. Stable. 2. Small opacity is seen in the left lower lung zone (new). This could be due to infection or inflammatory process. Need clinical correlation. 3. Otherwise, no significant interval changes. Electronically signed by Abdirahman Dean 07-17-2024 06:20 AM
[2024-07-17] MEDS ORDERED: ONDANSETRON INJ 2 MG/ML 2 ML VIAL IV PRN (07:56)
[2024-07-17] MEDS ORDERED: ALBUTEROL HFA 8 GM INHALER INH PRN (07:56)
[2024-07-17] MEDS ORDERED: POLYETHYLENE (MIRALAX) 17 GM PACK PO PRN (07:56)
[2024-07-17] MEDS ORDERED: ALBUT/IPRATROP 3MG/0.5MG NEB 3 ML VIAL NEB PRN (07:56)
[2024-07-17] MEDS: FLUTICASONE PROPIONATE NA SPR 16 GM BTL SCH (09:12)
[2024-07-17] MEDS: guaiFENesin 600 MG TABCR PO SCH (09:12)
[2024-07-17] MEDS: methylPREDNISolone 40 MG in SYRINGE 0 ML IV SCH (09:12)
[2024-07-17] MEDS: cefTRIAXone SODIUM 2,000 MG/50 ML BAG IV SCH (09:12)
[2024-07-17] MEDS: AZITHROMYCIN 250 MG TAB PO SCH (09:12)
[2024-07-17] MEDS: ENOXAPARIN INJ 40 MG/0.4 ML SYR SQ SCH (09:12)
[2024-07-17] MEDS: UMECLIDINIUM/VILANTEROL 62.5/25MCG 7 PUFFS/INHALER INH SCH (09:13)
[2024-07-17] MEDS: FLUTICASONE FUROATE 200MCG 14 PUFFS/INHALER INH SCH (09:13)
[2024-07-17 14:16] LABS: Appearance Urine Clear (Clear); Bilirubin Urine Negative (Negative); Blood Urine Negative (Negative); Color Urine Yellow; Glucose Urine UA 3+ (Negative); Ketones Urine Trace (Negative); Leukocyte Esterase Urine Negative (Negative); Nitrite Urine Negative (Negative); Protein Urine Negative (Negative); Specific Gravity Urine 1.031 (1.000-1.030); Urobilinogen Urine Negative (Negative); pH Urine 5.5 (4.5-7.5)
--- NOTE | 2024-07-17 14:18 | Electrocardiogram Report ---
Test Reason : Blood Pressure : */* mmHG Vent. Rate : 107 BPM Atrial Rate : 107 BPM P-R Int : 144 ms QRS Dur : 96 ms QT Int : 320 ms P-R-T Axes : 51 -1 46 degrees QTcB Int : 427 ms Sinus tachycardia Possible Inferior infarct , age undetermined Abnormal ECG When compared with ECG of 12-Jan-2022 11:40, Fusion complexes are no longer Present Vent. rate has increased by 41 bpm Confirmed by Oh Becker ([id number]) on 07/17/2024 2:17:58 PM Referred By: REFERRED SELF Confirmed By: Oh Becker
--- OUTSIDE RECORDS SUMMARY | 2024-07-17 14:48 | External Medical Summary | Continuity of Care Document ---
Author Name Unknown Organization [facility] [address] [place] [phone] Care Team Providers Care Entry Level Web Developer Name Role Phone Nahun Donaldson Primary Care Physician [phone] Encounter [facility] [id number] Date(s): 02/14/24 - 02/14/24 [facility] 207 [facility] [address] [facility], [address] [address] [phone] Encounter Diagnosis Body mass index [BMI] 28.0-28.9, adult(Discharge Diagnosis) - 02/14/24 Right low back pain(Discharge Diagnosis) - 02/14/24 Urinary urgency(Discharge Diagnosis) - 02/14/24 Discharge Disposition: Home or Self Care Attending Physician: DO Holliday Stephanie Marie Allergies, Adverse Reactions, Alerts Substance Criticality Severity Reaction Reaction Severity Status aspirin bleeding Active APAP/ASA/PPA bleeding Active DDAVP 1 anaphylaxis Resolved Omnipaque 140 anaphylaxis Acti ve Latex 2 Rash Active 1Pt was given a test dose of DDAVP 20mcg on 10/04/11 and did not exhibit any signs of allergic reaction or anaphylaxis 2RAST positive (Class III) 08/26/11 Assessment and Plan Extracted from: Title:Office Visit Note - APSO Author:DO Holliday Stephanie Marie Date:02/14/24 1.Right low back pain Acute condition, uncertain prognosis Goal: resolution Data: UA in office today with + nitrite, otherwise negative urine cx ordered STAT CT abd/pelvis ordered Plan: Ddx reviewed with patient. STAT CT abd/pelvis ordered to evaluate for potential kidney stone. Tylenol 1000mg poprovided to patient in office. Discussed management for stone (if stone is present) will be based on size; patient to be notified with results and further plan for mgmt. If CT isnegative, we discussed consideration of abx therapy for coveragebasedonUTIhxwhile awaiting urinecxresults.Return precautions. F/u prn. 2.Urinary urgency See above Immunizations Given and Recorded Vaccine Date Status Refusal Reason zoster vaccine, inactivated 1 05/10/22 Given zoster vaccine, inactivated 2 03/05/22 Given influenza virus vaccine, inactivated 03/01/22 Give n influenza virus vaccine, inactivated 03/05/16 Give n influenza virus vaccine, inactivated 04/13/14 Give n influenza virus vaccine, inactivated 01/13/13 Give n influenza virus vaccine, inactivated 03/04/12 Give n tetanus/diphtheria/pertuss, acel (Tdap) 3 01/12/22 Recorded tetanus/diphtheria/pertuss, acel (Tdap) 10/29/14 G iven SARS-CoV-2 (COVID-19) mRNA BNT-162b2 vax 4 02/09/21 Recorded SARS-CoV-2 (COVID-19) mRNA BNT-162b2 vax 5 01/19/21 Recorded hepatitis B adult vaccine 10/08/14 Recorded hepatitis B adult vaccine 05/14/14 Recorded hepatitis B adult vaccine 03/30/14 Recorded pneumococcal 23-valent vaccine 05/04/10 Recorded 1Result Comment: LOT [id number] Exp 01/18/23 2Result Comment: Adjuvant Suspension LOT [id number] 01/07/23 3Result Comment: 2022-03-05: Historical information-source unspecified 4Result Comment: 2022-03-05: Historical information-source unspecified 5Result Comment: 2022-03-05: Historical information-source unspecified Medications Albuterol (Eqv-ProAir HFA) 90 mcg/inh inhalation aerosol Start: 02/12/24 11:15:00 AM EDT, 2 inh, inhaled, q6h, Disp# 1 each, Refills: 5, Pharmacy: [facility] Start Date: 02/12/24 Status: Ordered Augmentin 875 mg-125 mg oral tablet Start: 02/20/23 2:48:00 PM EDT, amoxicillin 1 tab, PO, q12h, Disp# 20, Pharmacy: [facility]/pharmacy #[id number] Start Date: 02/20/23 Status: Ordered Dulera 200 mcg-5 mcg/inh inhalation aerosol Start: 02/12/24 11:14:00 AM EDT, See Instructions, Disp# 3 each, Refills: 3, 2 puff inhaled as needed for breaththrough symptoms- rinse mouth and throat after use, Pharmacy: [facility] Start Date: 02/12/24 Status: Ordered Flonase 50 mcg/inh nasal spray Start: 02/12/24 11:17:00 AM EDT, 2 spray, each nostril, bid, Disp# 3 each, Refills: 3, in each nostril shake well before using, Pharmacy: [facility] Start Date: 02/12/24 Status: Ordered montelukast 10 mg oral tablet Start: 04/23/23 11:09:00 PM EST, 1 tab, PO, qPM, Disp# 90 tab, Refills: 3, Pharmacy: [facility] Start Date: 04/23/23 Status: Ordered Trelegy Ellipta 200 mcg-62.5 mcg-25 mcg/inh inhalation powder Start: 02/12/24 11:13:00 AM EDT, 1 puff, inhaled, Daily, Disp# 90 blister, Refills: 3, at the same time every day, rinse mouth after using, Pharmacy: [facility] Start Date: 02/12/24 Status: Ordered Mental Status 02/14/24 Barriers to Learning one year None evide nt Mandatory Health Literacy Documentation Yes Communication Barrier Present No Health Literacy Communication Barriers N ever Primary Language Malian Problem List Condition Confirmation Course Effective Dates Status H ealth Status Informant Acute sinus infection Confirmed Active Allergic rhinosinusitis Confirmed Active 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 Active Bilateral inguinal hernia, s/p repair 01/10 Confirmed 07/18/11 Active Chest pain Confirmed Active Tobacco chew use--stopped 2015 Confirmed Active Occupational rhinitis Confirmed Active COPD Confirmed Active Cough Confirmed Active Dyspnea on exertion Confirmed Active Asthma exacerbation Confirmed Active Herniated disc Confirmed Active Left ventricular hypertrophy Confirmed Active Occupational lung disease Confirmed Active Pectus excavatum Confirmed Active Platelet disorder Confirmed Active Acute recurrent sinusitis Confirmed Active Primary snoring Confirmed Active Pulmonary nodule/lesion, solitary Confirmed Active Weight disorder Confirmed Active Wheezing Confirmed Active Diagnosis Diagnosis Type Effective Dates Health Status Cl inical Service Informant Body mass index [BMI] 28.0-28.9, adult Discharge Diagnosis 02/14/24 Non-Specified Right low back pain Discharge Diagnosis 02/14/24 Non-Specified Urinary urgency Discharge Diagnosis 02/14/24 Non-Specified Procedures Procedure Date Related Diagnosis Body Site Status CT head/brain wo con 1 10/25/20 Co mpleted Colonoscopy 2 05/25/19 Completed Chest x-ray 3 01/09/19 Completed PFT - Pulmonary function tests 04/01/18 Completed PFT - Pulmonary function tests 04/23/17 Completed Colonoscopy 4, 5 04/12/16 Complete d MRI of brain 6 12/20/14 Completed Imaging of carotid arteries by duplex scan with spectrum analysis 7 12/17/14 Co mpleted MRI of cervical spine 8 12/06/14 C ompleted Neck angiography 9 12/06/14 Comple ayanna Hernia repair 01/11/12 Completed Cardiac catheterization 12/2011 C ompleted sinus surgery 04/22/07 Completed Colonoscopy 2005 Completed knee surgery 04/22/93 Completed back surgery herniated disc 04/22/91 Completed 1Impression: No acute intracraniel abnormalilty. 2Non-bleeding internal hemorrhoids. Diverticulosis in the sigmoid colon. No specimens collected. Repeat in 5 years. 3persistent left bladder opacities. Atelectasis/scanning versus a minimal pneumonitis 4Pathology results: A) Colon, 50 cm, polypectomy: tubualr adenoma B) Colon, 20 cm, polypectomy: tubular adenoma. 5pertinent negatiaves include normal sphincter tone, no palpable rectal lesions and no anal lesion or abnormality was detected. A 10mm polyp qA DOUNS r 50cm proximal to the anus. One 12mm polyp proximal to the anus. Diverticulosis in he sigmoid colon, 6No definite acute intracranial abnormality. Asymmetric appearance of the left transverse sinus and sigmoid sinus in comparison to the right. This could be due to flow artifact. However, recommend follow up dedicated brain MRV or head CTA to exclude the less likely possibly of venous sinus thrombosis. These finds were called to the referring physicians office following dictation. 7No evidence of significant stenosis within the internal carotid arteries bilaterally. Antegrade flow in the bilateral vertebral arteries. Normal flow in the bilateral subclavian arteries. 8No acute bony abnormality. Cervical spinal cord is normal. Cervical spondylosis, greatest at C5-C6 and C6-C7. 9Unremarkable MR angiogram. Results Laboratory List Name Date Urine Culture-CAP (Urine Cx-ARLN) Urine Chemstick POC Outpt. (UA Chemstick POC Outpt.) 02/14/24 Most recent to oldest [Reference Range]: 1 Urine Cx-[facility] See Result Comment 1 (02/14/24 10:36 AM) Glucose Urine Dipstick Ref Range [negati ve] (02/14/24 10:25 AM) Bilirubin Urine Dipstick Ref Range [nega tive] (02/14/24 10:25 AM) Specific [place] Urine Ref Range [No Nor mal Defined] (02/14/24 10:25 AM) Protein Urine Dipstick Ref Range [negati ve] (02/14/24 10:25 AM) pH Urine Dipstick Ref Range [4.5 - 8.0] (02/14/24 10:25 AM) Ketones Urine Dipstick Ref Range [negati ve] (02/14/24 10:25 AM) Blood Urine Dipstick Ref Range [negative ] (02/14/24 10:25 AM) Urobilinogen Urine Dipstick Ref Range [0 .2 - 1.0 mg/dL] (02/14/24 10:25 AM) Nitrites Urine Dipstick Ref Range [negat henny] (02/14/24 10:25 AM) Leukocytes Urine Dipstick Ref Range [neg ative] (02/14/24 10:25 AM) U Leuk Est Negative (02/14/24 10:25 AM) U Nitrite Positive (02/14/24 10:25 AM) U Urobilinogen 0.2 mg/dl (02/14/24 10:25 AM) U Protein Negative (02/14/24 10:25 AM) U pH 6 (02/14/24 10:25 AM) U Blood Negative (02/14/24 10:25 AM) U Spec Grav 1.020 2 (02/14/24 10:25 AM) U Ketones Negative (02/14/24 10:25 AM) U Bili Negative (02/14/24 10:25 AM) U Gluc Negative (02/14/24 10:25 AM) U Appear Clear (02/14/24 10:25 AM) Urine color urine dipstick Yellow (02/14/24 10:25 AM) 1Result Comment: CULTURE, URINE, ROUTINE Micro Number: [id number] Test Status: Final Specimen Source: Urine Specimen Quality: Adequate Result: No Growth Specimen Received d/t: 02/15/2024 05:51:00 Lab test performed by: [facility], [facility] [address] [place] [address] Julio Cesar Berumen MD 2Result Comment: Performed at: [facility], [address] [facility], [address], [place] [address] Vital Signs Most recent to oldest [Reference Range]: 1 Height 185.3 cm (02/14/24 9:48 AM) Patient Weight 99.5 kg (02/14/24 9:48 AM) Body Mass Index 28.98 kg/m2 (02/14/24 9:48 AM) Temperature [36.5-37.9 DegC] 36.5 DegC (02/14/24 9:48 AM) Heart Rate 73 bpm (02/14/24 9:48 AM) Respiratory Rate 16 br/min (02/14/24 9:48 AM) Social History Social History Type Response Smoking Status Never smoked cigaret heber Sex Male Sex Representation Male (finding) FCM Outpt Note * DO Holliday Stephanie Marie: PERFORM Event Display: FCM Outpt Note Authored Date: Assessment/Plan 1.Right low back pain Acute condition, uncertain prognosis Goal: resolution Data: UA in office today with + nitrite, otherwise negative urine cx ordered STAT CT abd/pelvis ordered Plan: Ddx reviewed with patient. STAT CT abd/pelvis ordered to evaluate for potential kidney stone.Tylenol 1000mg poprovided to patient in office. Discussed management for stone (if stone is present) will be based on size; patient to be notified with results and further plan for mgmt. If CT isn egative, we discussed consideration of abx therapy for coveragebasedonUTIhxwhile awaitingurinecxresults.Return precautions. F/u prn. 2.Urinary urgency See above Chief Complaint Back pain since 3 days History of Present Illness 63 yo malepresented to the office with concern for acute right low back pain. Patient reports that the pain had an acute onset 3 days agoafter waking up in the morning. The pain has been constant and described as a "hard ache." The painhas intermittent radiation into the right testicle. There is no specific precipitating factor to the back pain. Patientisfrequently heavy lifting but had no specificinjury with recent lifting. He does denies any MVC, fall, or direct traumato the back. Patient rates the current pain at a 6 out of 10. He reports associated urinary urgency; notes thaturinating will occasionally relieve some of the pain if the pain is built up. Hedoes admit to poor hydration but states that he has been trying to drink more water. Patient denies fever, cough, chest pain, change in baseline shortness of breath, rash. He has no known historyof kidney stones. He does have a history of UTI with the last UTI being approximately 1 year ago. He denies urinary incontinence or fecal incontinence. There is no associated numbness or tinglingdown thebilateral lower extremities. Pain has not woken him from sleep. He has trialed topical lidocaine and Tylenol for the pain. Last dose of Tylenol was yesterday. Physical Exam Vitals & Measurements T:36.5C HR:73(Monitored) RR:16 SpO2:96.5% HT:185.3cm WT:99.500kg(Dosing) WT:99.5kg BMI:28.98 PHQ2 Data(Data Documented on:02/14/2024 09:50) Emotional health assessment NEGATIVE GENERAL: Difficulty finding position of comfort while seated. Well developed and well nourished. Vital signs reviewed as above. EYES: EOMI. Anicteric sclerae. HENT: Moist mucous membranes. RESPIRATORY: Clear to auscultation bilaterally.No wheezing, rales, orrhonchi. CARDIOVASCULAR: Regularrate and rhythm. ABDOMEN: Soft,fnu-[id number]-[id number]. Normal bowel sounds. There is no CVA tenderness to palpation. BACK: No spinous process tenderness to palpation. No focal lumbar paraspinal tenderness to palpation. EXTREMITIES: No gross deformities. SKIN: Warm, dry. NEUROLOGIC: Alert and oriented. Normal speech. No gross focal neurological deficits. PSYCHIATRIC: Cooperative. Appropriate mood and affect. 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 gum powder allergy Occupational lung disease Occupational rhinitis Pectus excavatum Platelet disorder Primary snoring Pulmonary nodule/lesion, solitary Tobacco chew use--stopped 2015 Von Willebrand disease| Status: Inactive Weight disorder Wheezing Procedure/Surgical History CT head/brain wo con| Service Date: 1Colonoscopy| Service Date: 05/25/2019Chest x-ray| Service Date: 01/09/2019PFT - Pulmonary function tests| Service Date: 04/01/2018PFT - Pulmonary function tests| Service Date: 04/23/2017Colonoscopy| Service Date: 04/12/2016MRI of brain| Service Date: 12/20/2014Imaging of carotid arteries by duplex scan with spectrum analysis| Service Date: 12/17/2014Neck angiography| Service Date: 12/06/2014MRI of cervical spine| Service Date: 12/06/2014Hernia repair| Service Date: 01/11/2012Cardiac catheterization| Service Date: 12/2011sinus surgery| Service Date: 04/22/2007Colonoscopy| Service Date: 2005knee surgery| Service Date: 04/22/1993back surgery herniated disc| Service Date: 04/22/1991 Medications acetaminophen, 1000 mg= 2 tab, PO, ONCE albuterol(Albuterol (Eqv-ProAir HFA) 90 mcg/inh inhalation aerosol), 2 inh, inhaled, q6h, 5 refills amoxicillin-clavulanate(Augmentin 875 mg-125 mg oral tablet), 1 tab, PO, q12h fluticasone nasal(Flonase 50 mcg/inh nasal spray), 2 spray, each nostril, bid, 3 refills fluticasone/umeclidinium/vilanterol(Trelegy Ellipta 200 mcg-62.5 mcg-25 mcg/inh inhalation powder),1 puff, inhaled, Daily, 3 refills formoterol-mometasone(Dulera 200 mcg-5 mcg/inh inhalation aerosol), See Instructions, 3 refills montelukast(montelukast 10 mg oral tablet), 10 mg= 1 tab, PO, qPM, 3 refills Allergies APAP/ASA/PPAbleeding LatexRash Omnipaque 140anaphylaxis aspirinbleeding Social History Smoking Status Never smoked cigarettes Alcohol - Low Risk - Comments: a beer every now and then Exercise - Regular exercise Tobacco - Low Risk Family History Prostate carcinoma: Father. Health Status Family Member(s) Immunizations Vaccine Date Status zoster vaccine, inactivated 05/10/2022 Given Comments : LOT [id number] Exp 01/18/23 zoster vaccine, inactivated 03/05/2022 Given Comments : Adjuvant Suspension LOT [id number] 01/07/23 influenza virus vaccine, inactivated 03/01/2022 Given tetanus/diphtheria/pertuss, acel (Tdap) 01/12/2022 Recorded Comments : 2022-03-05: Historical information-source unspecified SARS-CoV-2 (COVID-19) mRNA BNT-162b2 vax 02/09/2021 Recorded Comments : 2022-03-05: Historical information-source unspecified SARS-CoV-2 (COVID-19) mRNA BNT-162b2 vax 01/19/2021 Recorded Comments : 2022-03-05: Historical information-source unspecified influenza virus vaccine, inactivated 03/05/2016 Given tetanus/diphtheria/pertuss, acel (Tdap) 10/29/2014 Given hepatitis B adult vaccine 10/08/2014 Recorded hepatitis B adult vaccine 05/14/2014 Recorded influenza virus vaccine, inactivated 04/13/2014 Given hepatitis B adult vaccine 03/30/2014 Recorded influenza virus vaccine, inactivated 01/13/2013 Given influenza virus vaccine, inactivated 03/04/2012 Given pneumococcal 23-valent vaccine 05/04/2010 Recorded Recommendations Health Maintenance Pending(in the next year) OverDue Adult Influenza Vaccine due10/20/23and every 1year Due Adult COVID-19 Vaccination due02/14/24Unknown Frequency Adult Social Determinants of Health Screening due02/14/24Unknown Frequency Hepatitis C Screening due02/14/24One-time only Pneumococcal Vaccine Adults and Adolescents with Chronic Illness due02/14/24One-time only Satisfied(in the past 1 year) Satisfied Body Mass Index on02/14/24.Satisfied by LUAN Mendenhall Kathryn Electronic Signature on File Electronically Reviewed/Signed by: Delia Holliday DO Author Signature Dt/Tm:02/14/2024 10:35 AM Department of Family Medicine B Patient Care team information Care Team Personnel Name: SHU Copeland Tara Position: Nurse Pract - Family Med Member Role: Lifetime Relationship Address: [address] [place] [address], [place] [address] [place] Name: MD Kody, Leslye Position: Physician - Pulmonary Med Member Role: Lifetime Relationship Address: [address] [place] [address] [address] [place] [address] [place] Name: MD Mendoza, Nahun Position: Physician - Family Med Member Role: Primary Care Provider Address: [address] [facility] [address] [place] [address] [place] Care Team Related Persons Name: SOBIA PETERSON
--- OUTSIDE RECORDS SUMMARY | 2024-07-17 14:48 | External Medical Summary | Continuity of Care Document ---
Author Name Unknown Organization [facility] [address] [place] [phone] Care Team Providers Care Transmission System Operator Name Role Phone Nahun Donaldson Primary Care Physician [phone] Encounter [facility] [id number] Date(s): 04/01/24 - 04/01/24 [facility] 1850 [facility] 207 [facility] [address] [address] [place] [phone] Encounter Diagnosis Acute recurrent sinusitis(Discharge Diagnosis) - 04/01/24 Discharge Disposition: Home or Self Care Attending [...] III) 08/26/11 Assessment and Plan Extracted from: Title:FCM: sinusitis Author:DO Holliday Stephani e Marie Date:04/01/24 1.Acute recurrent sinusiti s Acute, uncomplicated illness/injury Goal:Resolution Data: _ Plan: - Rx Augmentin BID x 7 days. - Conservative treatment: pain/fever (Tylenol and/or Ibuprofen); cough (1 tsp honey q8-12h prn, warm liquids); congestion (nasal sprays, Flonase bid prn);sore throat (salt water gurgles bid, throat lozenges prn if appropriate) - Discussed other conservative measures including humidifier use in the room. - Continue regular activity as tolerated. Avoid sick contacts. Encouraged hand washing. - Continue a regular diet as tolerated. Encourage increasedfluids by mouth for adequate hydration (goal of increasing to 4 water bottles/day as he is currently at 1 water bottle/day). - Call office with any questions or concerns.Return precautions provided. - If no improvement within 1 week OR with worsening symptoms, would recommend repeat evaluation - Otherwise, f/u prn Immunizations Given and Recorded Vaccine Date Status [...] (Eqv-ProAir HFA) 90 mcg/inh inhalation aerosol Start: 02/25/24 1:49:00 PM EST, 2 inh, inhaled, q6h, Disp# 3 each, Refills: 3, Pharmacy: [facility] Start Date: 02/25/24 Status: Ordered Augmentin 875 mg-125 mg oral tablet Start: 04/01/24 8:24:00 AM EST, amoxicillin 1 tab, PO, q12h, Disp# 14, Pharmacy: [facility]/pharmacy #[id number] Start Date: 04/01/24 Stop Date: 04/08/24 Status: Ordered Dulera 200 mcg-5 mcg/inh inhalation aerosol Start: 02/25/24 1:49:00 PM EST, See Instructions, Disp# 3 each, Refills: 3, 2 puff inhaled as neededfor breaththrough symptoms- rinse mouth and throat after use, Pharmacy: [facility] Start Date: 02/25/24 Status: Ordered Flonase 50 mcg/inh nasal spray Start: 02/25/24 1:49:00 PM EST, 2 spray, each nostril, bid, Disp# 3 each, Refills: 3, in each nostril shake well before using, Pharmacy: [facility] Start Date: 02/25/24 Status: Ordered montelukast 10 mg oral tablet Start: 02/25/24 1:49:00 PM EST, 1 tab, PO, qPM, Disp# 90 tab, Refills: 3, Pharmacy: [facility] Start Date: 02/25/24 Status: Ordered Trelegy Ellipta 200 mcg-62.5 mcg-25 mcg/inh inhalation powder Start: 02/25/24 1:49:00 PM EST, 1 puff, inhaled, Daily, Disp# 3 each, Refills: 3, at the same time every day, rinse mouth after using, Pharmacy: [facility] Start Date: 02/25/24 Status: Ordered Mental Status 04/01/24 Barriers to Learning one year None evide nt Mandatory Health Literacy Documentation Yes Health Literacy Communication Barriers N ever Primary Language Thai Problem List Condition Confirmation Course Effective Dates [...] Dates Health Status Cl inical Service Informant Acute recurrent sinusitis Discharge Diagnosis 04/01/24 Non-Specified Procedures Procedure Date Related Diagnosis Body [...] at C5-C6 and C6-C7. 9Unremarkable MR angiogram. Vital Signs Most recent to oldest [Reference Range]: 1 Patient Weight 99.8 kg (04/01/24 7:51 AM) Temperature [36.5-37.9 DegC] 36.7 DegC (04/01/24 7:51 AM) Heart Rate 76 bpm (04/01/24 7:51 AM) Respiratory Rate 17 br/min (04/01/24 7:51 AM) Blood Pressure 122/98mmHg (04/01/24 7:51 AM) Cuff Pulse Pressure 24 mmHg (04/01/24 7:51 AM) Social History Social History Type Response Smoking Status Never smoked cigaret heber Sex Male Sex Representation Male (finding) FCM Outpt Note * DO Holliday Stephanie Marie: PERFORM Event Display: FCM Outpt Note Authored Date: Assessment/Plan 1.Acute recurrent sinusitis Acute, uncomplicated illness/injury Goal:Resolution Data:_ Plan: - Rx Augmentin BID x 7 days. - Conservative treatment: pain/fever (Tylenol and/or Ibuprofen); cough (1 tsp honey q8-12h prn, warm liquids); congestion (nasal sprays, Flonase bid prn);sore throat (salt water gurgles bid, throatlozenges prn if appropriate) - Discussed other conservative measures including humidifier use in the room. - Continue regular activity as tolerated. Avoid sick contacts. Encouraged hand washing. - Continue a regular diet as tolerated. Encourage increasedfluids by mouth for adequate hydration(goal of increasing to 4 water bottles/day as he is currently at 1 water bottle/day). - Call office with any questions or concerns.Return precautions provided. - If no improvement within 1 week OR with worsening symptoms, would recommend repeat evaluation - Otherwise, f/u prn Chief Complaint Nasal drainage, nasal congestion, headaches, body aches, hot/cold chills, productive cough x1 wk. History of Present Illness Patient is a63 year oldmale presenting to the office with concern for possible sinus infection.Sxs started with sinus drainage, headache,fatigue.Symptoms progressively worsening. Current symptoms includingfatigue, sinus congestion/drainage, and cough. + thicksputum production.Sxs started ~1 weekago. Pt is on Trelegy and Dulera; also on montelukast and Flonase. Has been using albuterol daily over the past week.Therehave beenrecent known sick contacts. Patient with hx of COPD. Denies objective fever, ear pain, sore throat, chest pain, abdominal pain, nausea, vomiting, or diarrhea. He is not UTD on COVID vaccination (received initial 2 dose series). Did not get the flu vaccinethis year. Physical Exam Vitals & Measurements T:36.7C HR:76(Monitored) RR:17 BP:122/98 SpO2:96% WT:99.800kg(Dosing) WT:99.8kg PHQ2 Data(Data Documented on:04/01/2024 07:48) Emotional health assessment NEGATIVE GENERAL: No acute distress. Well developed and well nourished. Vital signs reviewed as above. EYES: PERRLA. EOMI. Anicteric sclerae. HENT: Moist mucous membranes. TM wnl bilaterally. No pharyngeal erythema or exudate. + frontal sinus TTP. No maxillary sinus TTP. RESPIRATORY: Clear to auscultation bilaterally.No wheezing, rales, orrhonchi. CARDIOVASCULAR: Regularrate and rhythm.No murmurs. EXTREMITIES: No gross deformities. SKIN: Warm, dry. [...] mcg/inh inhalation aerosol), 2 inh, inhaled, q6h, 3 refills amoxicillin-clavulanate(Augmentin 875 mg-125 mg oral tablet), [...] due10/20/23and every 1year Due Adult COVID-19 Vaccination due04/01/24Unknown Frequency Adult Social Determinants of Health Screening due04/01/24Unknown Frequency Hepatitis C Screening due04/01/24One-time only Pneumococcal Vaccine Adults and Adolescents with Chronic Illness due04/01/24One-time only Satisfied(in the past 1 year) Satisfied Body Mass Index on02/14/24.Satisfied by LUAN Mendenhall Kathryn Electronic Signature on File Electronically Reviewed/Signed by: Delia Holliday DO Author Signature Dt/Tm:04/01/2024 08:29 AM Department of Family Medicine B Patient Care team information Care Team Personnel Name: SHU Copeland Tara Position: Nurse Pract - Family Med Member Role: Lifetime Relationship Address: [address] [place] [address] [place] Name: MD Kody, Leslye Position: Physician - Pulmonary Med Member Role: Lifetime Relationship Address: [address] [place] [address] [address] [place] [address] [place] Name: MD Mendoza, Nahun Position: Physician - Family Med Member Role: Primary Care Provider Address: 1850 [facility] [address] [place] [address] [place] Care Team Related Persons Name: RADHA CASANOVA"
--- OUTSIDE RECORDS SUMMARY | 2024-07-17 14:48 | External Medical Summary | Continuity of Care Document ---
Author Name Unknown Organization [facility] 1850 [facility] [address] [place] [id number] Care Team Providers Care Director Alumni Relations Name Role Phone Nahun Donaldson Primary Care Physician [phone] Encounter [facility] [id number] Date(s): 05/15/24 - 05/15/24 [facility] 0 [facility] 207 [facility] 1850 [facility] 207 [place] [address] [place] [phone] Encounter Diagnosis COPD(Discharge Diagnosis) - 05/15/24 H/O colonoscopy with polypectomy(Discharge Diagnosis) - 05/15/24 Pulmonary nodule/lesion, solitary(Discharge Diagnosis) - 05/15/24 Encounter for wellness examination(Discharge Diagnosis) - 05/15/24 Tobacco chew use--stopped 2015(Discharge Diagnosis) - 05/15/24 Platelet disorder(Discharge Diagnosis) - 05/15/24 Preventative health care(Discharge Diagnosis) - 05/15/24 Discharge Disposition: Home or Self Care Attending Physician: DO Banerjee Gretchen Elizabeth Allergies, Adverse Reactions, Alerts Substance Criticality Severity Reaction Reaction Severity Status aspirin bleeding Active APAP/ASA/PPA bleeding Active DDAVP 1 anaphylaxis Resolved Omnipaque 140 anaphylaxis Acti ve Latex 2 Rash Active 1Pt was given a test dose of DDAVP 20mcg on 10/04/11 and did not exhibit any signs of allergic reaction or anaphylaxis 2RAST positive (Class III) 08/26/11 Immunizations Given and Recorded Vaccine Date Status [...] (Eqv-ProAir HFA) 90 mcg/inh inhalation aerosol Start: 04/08/24 2:46:00 PM EST, 2 inh, inhaled, q6h, Disp# 3 each, Refills: 3, [facility]acy[facility] Start Date: 04/08/24 Status: Ordered Augmentin 875 mg-125 mg oral tablet Start: 04/01/24 8:24:00 AM EST, amoxicillin 1 tab, PO, q12h, Disp# 14, Pharmacy: [facility]/pharmacy #[id number] Start Date: 04/01/24 Stop Date: 04/08/24 Status: Ordered Dulera 200 mcg-5 mcg/inh inhalation aerosol Start: 02/25/24 1:49:00 PM EST, See Instructions, Disp# 3 each, Refills: 3, 2 puff inhaled as neededfor breaththrough symptoms- rinse mouth and throat after use, Pharmacy: [facility] Start Date: 02/25/24 Status: Ordered Flonase 50 mcg/inh nasal spray Start: 02/25/24 1:49:00 PM EST, 2 spray, each nostril, bid, Disp# 3 each, Refills: 3, in each nostril shake well before using, Pharmacy: [facility] Start Date: 02/25/24 Status: Ordered montelukast 10 mg oral tablet Start: 02/25/24 1:49:00 PM EST, 1 tab, PO, qPM, Disp# 90 tab, Refills: 3, Pharmacy: [facility] Start Date: 02/25/24 Status: Ordered Trelegy Ellipta 200 mcg-62.5 mcg-25 mcg/inh inhalation powder Start: 02/25/24 1:49:00 PM EST, 1 puff, inhaled, Daily, Disp# 3 each, Refills: 3, at the same time every day, rinse mouth after using, Pharmacy: [facility] Start Date: 02/25/24 Status: Ordered Mental Status 05/15/24 Barriers to Learning one year None evide nt Mandatory Health Literacy Documentation Yes Health Literacy Communication Barriers N ever Primary Language Costa Rican Problem List Condition Confirmation Course Effective Dates [...] Diagnosis Diagnosis Type Effective Dates Health Status Clinical Service Informant COPD Discharge Diagnosis 05/15/24 Non-Specified H/O colonoscopy with polypectomy Discharge Diagnosis 05/15/24 Non-Specified Pulmonary nodule/lesion, solitary Discharge Diagnosis 05/15/24 Non-Specified Encounter for wellness examination Discharge Diagnosis 05/15/24 Non-Specified Tobacco chew use--stopped 2015 Discharge Diagnosis 05/15/24 Non-Specified Platelet disorder Discharge Diagnosis 05/15/24 Non-Specified Preventative health care Discharge Diagnosis 05/15/24 Non-Specified Procedures Procedure Date Related Diagnosis Body [...] Most recent to oldest [Reference Range]: 1 2 Height 181.8 cm (05/15/24 11:34 AM) Patient Weight 99.5 kg (05/15/24 11:34 AM) Body Mass Index 30.1 kg/m2 (05/15/24 11:34 AM) Heart Rate 78 bpm (05/15/24 11:34 AM) Respiratory Rate 12 br/min (05/15/24 11:34 AM) Blood Pressure 120/78mmHg (05/15/24 11:39 AM) 144/80mmHg (05/15/24 11:34 AM) Cuff Pulse Pressure 64 mmHg (05/15/24 11:34 AM) Social History Social History Type Response Smoking Status Never smoked cigaret heber Sex Male Sex Representation Male (finding) Patient Care team information Care Team Personnel Name: SHU Copeland Tara Position: Nurse Pract - Family Med Member Role: Lifetime Relationship Address: [address] [place] [id number] [place] Name: MD Gates Rebecca Position: Physician - Pulmonary Med Member Role: Lifetime Relationship Address: [address] [place] [address] [address] [place] [address] [place] Name: MD Donaldson Dongsheng Position: Physician - Family Med Member Role: Primary Care Provider Address: 1850 [facility] [address] [place] [address] Care Team Related Persons Name: RADHA CASANOVA
--- OUTSIDE RECORDS SUMMARY | 2024-07-17 14:48 | External Medical Summary | Continuity of Care Document ---
Author Name Unknown Organization [facility] [address] [place] [address] EDMUNDO VALENCIA [phone] Care Team Providers Care Nursing Student Name Role Phone Nahun Donaldson Primary Care Physician [phone] Encounter [facility] [id number] Date(s): 02/12/24 - 02/12/24 [facility] [address], [address], [address] EDMUNDO Handley [address] Encounter Diagnosis Body mass index [BMI] 36.0-36.9, adult(Discharge Diagnosis) - 02/12/24 Asthma(Discharge Diagnosis) - 02/12/24 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 Allergic rhinosinusitis(Discharge Diagnosis) - 02/12/24 Discharge Disposition: Home or Self Care Attending Physician: MD Gates Rebecca Referring Physician: MD Mendoza, Nahun Allergies, Adverse Reactions, Alerts Substance Criticality Severity [...] q6h, Disp# 1 each, Refills: 5, Pharmacy: [facility] Start Date: 02/12/24 Status: Ordered Augmentin 875 mg-125 mg oral tablet Start: 02/20/23 2:48:00 PM EDT, amoxicillin 1 tab, PO, q12h, Disp# 20, Pharmacy: [facility]/pharmacy #[id number] Start Date: 02/20/23 Status: Ordered Dulera 200 mcg-5 mcg/inh inhalation aerosol Start: 02/12/24 11:14:00 AM EDT, See Instructions, Disp# 3 each, Refills: 3, 2 puff inhaled as needed for breaththrough symptoms- rinse mouth and throat after use, Pharmacy: [facility] Start Date: 02/12/24 Status: Ordered Flonase 50 mcg/inh nasal spray Start: 02/12/24 11:17:00 AM EDT, 2 spray, each nostril, bid, Disp# 3 each, Refills: 3, in each nostril shake well before using, Pharmacy: [facility] Start Date: 02/12/24 Status: Ordered [...] day, rinse mouth after using, Pharmacy: [facility] Start Date: 02/12/24 Status: Ordered Mental Status 02/12/24 Barriers to Learning one year None evide nt Mandatory Health Literacy Documentation Yes Health Literacy Communication Barriers N ever Primary Language Syriac Problem List Condition Confirmation Course Effective Dates [...] Effective Dates Health Status Clinical Service Informant Body mass index [BMI] 36.0-36.9, adult Discharge Diagnosis 02/12/24 Non-Specified Asthma Discharge Diagnosis 02/12/24 Allergic rhinosinusitis Discharge Diagnosis 02/12/24 Occupational lung disease Discharge Diagnosis 02/12/24 Procedures Procedure Date Related Diagnosis Body Site [...] recent to oldest [Reference Range]: 1 Height 163 cm (02/12/24 10:50 AM) Patient Weight 97 kg (02/12/24 10:50 AM) Body Mass Index 36.51 kg/m2 (02/12/24 10:50 AM) Temperature [36.5-37.9 DegC] 36.7 DegC (02/12/24 10:50 AM) Heart Rate 67 bpm (02/12/24 10:50 AM) Respiratory Rate 16 br/min (02/12/24 10:50 AM) Blood Pressure 131/80mmHg (02/12/24 10:50 AM) Cuff Pulse Pressure 51 mmHg (02/12/24 10:50 AM) BP Location # 1 Left Arm (02/12/24 10:50 AM) Social History Social History Type Response Smoking Status Never smoked cigaret heber Sex Male Sex Representation Male (finding) Patient Care team information Care Team Personnel Name: SHU Copeland Tara Position: Nurse Pract - Family Med Member Role: Lifetime Relationship Address: [address] [place] [id number] [place] Name: MD Kody, Leslye Position: Physician - Pulmonary Med Member Role: Lifetime Relationship Address: [address] [place] [address] [address] [place] [address] [place] Name: MD Mendoza, Nahun Position: Physician - Family Med Member Role: Primary Care Provider Address: [address] [facility] [address] [place] [address] [place] Care Team Related Persons Name: SOBIA PEETRSON
--- OUTSIDE RECORDS SUMMARY | 2024-07-17 14:48 | External Medical Summary | Continuity of Care Document ---
Author Name Unknown Organization [address] [place] [phone] Care Team Providers Care Fine Hairer Name Role Phone Nahun Donaldson Primary Care Physician [phone] [facility] [id number] Date(s): 07/01/24 - 07/01/24 [facility] 0 [facility] 207 [place] [address] [address] [place] [phone] Encounter Diagnosis Encounter for immunization(Discharge Diagnosis) - 06/30/24 Discharge Disposition: Home or Self Care Attending Physician: MD Donadlson Dongsheng Encounter Type: Clinic Allergies, Adverse Reactions, Alerts Substance Criticality Severity [...] and Recorded Vaccine Date Status Refusal Reason pneumococcal 20-valent conjugate vaccine 07/01/24 Given influenza virus vaccine, inactivated 07/01/24 Give n influenza virus vaccine, inactivated 03/01/22 Give n influenza virus vaccine, inactivated 03/05/16 Give n influenza virus vaccine, inactivated 04/13/14 Give n influenza virus vaccine, inactivated 01/13/13 Give n influenza virus vaccine, inactivated 03/04/12 Give n zoster vaccine, inactivated 1 05/10/22 Given zoster vaccine, inactivated 2 03/05/22 Given tetanus/diphtheria/pertuss, acel (Tdap) 3 01/12/22 Recorded tetanus/diphtheria/pertuss, [...] [facility] Start Date: 04/08/24 Status: Ordered Quantity: 3.0 Unit: each Repeat number: 4 Augmentin 875 mg-125 mg oral tablet Start: 04/01/24 8:24:00 AM EST, amoxicillin 1 tab, PO, q12h, Disp# 14, Pharmacy: [facility]/pharmacy #[id number] Start Date: 04/01/24 Stop Date: 04/08/24 Status: Ordered Quantity: 14.0 Unit: tab Repeat number: 1 Dulera 200 mcg-5 mcg/inh inhalation aerosol Start: 02/25/24 1:49:00 PM EST, See Instructions, Disp# 3 each, Refills: 3, 2 puff inhaled as neededfor breaththrough symptoms- rinse mouth and throat after use, Pharmacy: [facility] Start Date: 02/25/24 Status: Ordered Quantity: 3.0 Unit: each Repeat number: 4 Flonase 50 mcg/inh nasal spray Start: 02/25/24 1:49:00 PM EST, 2 spray, each nostril, bid, Disp# 3 each, Refills: 3, in each nostril shake well before using, Pharmacy: [facility] Start Date: 02/25/24 Status: Ordered Quantity: 3.0 Unit: each Repeat number: 4 montelukast 10 mg oral tablet Start: 02/25/24 1:49:00 PM EST, 1 tab, PO, qPM, Disp# 90 tab, Refills: 3, Pharmacy: [facility] Start Date: 02/25/24 Status: Ordered Quantity: 90.0 Unit: tab Repeat number: 4 Suprep Bowel Prep Kit 1.6 g-3.13 g-17.5 g/177 mL oral liquid Start: 06/11/24 6:36:00 AM EST, See Instructions, Disp# 354 mL, Refills: 0, Take as directed., Pharmacy: [facility]/pharmacy #[id number] Start Date: 06/11/24 Status: Ordered Quantity: 354.0 Unit: mL Repeat number: 1 Trelegy Ellipta 200 mcg-62.5 mcg-25 mcg/inh inhalation powder Start: 05/30/24 9:51:00 PM EST, 1 puff, inhaled, Daily, Disp# 3 each, Refills: 3, at the same time every day, rinse mouth after using, Pharmacy: [facility] Start Date: 05/30/24 Status: Ordered Quantity: 3.0 Unit: each Repeat number: 4 Problem List Condition Confirmation Course Effective Dates [...] Effective Dates Health Status Clinical Service Informant Encounter for immunization Discharge Diagnosis 06/30/24 Non-Specified Procedures Procedure Date Related Diagnosis Body Site Status Colonoscopy 1, 2 06/24/[address] head/brain wo con 3 10/25/20 Co mpleted Colonoscopy 4 05/25/19 Completed Chest x-ray 5 01/09/19 Completed PFT - Pulmonary function tests 04/01/18 Completed PFT - Pulmonary function tests 04/23/17 Completed Colonoscopy 6, 7 04/12/16 Complete d MRI of brain 8 12/20/14 Completed Imaging of carotid arteries by duplex scan with spectrum analysis 9 12/17/14 Co mpleted MRI of cervical spine 10 12/06/14 Completed Neck angiography 11 12/06/14 Compl eted Hernia repair 01/11/12 Completed Cardiac catheterization 12/2011 C ompleted sinus surgery 04/22/07 Completed Colonoscopy 2005 Completed knee surgery 04/22/93 Completed back surgery herniated disc 04/22/91 Completed 1Transverse colon polyp, polypectomy: Tubular adenoma. 2- One 8 mm polyp in the transverse colon, removed with a cold snare. Resected and retrieved. - The examination was otherwise normal. 3Impression: No acute intracraniel abnormalilty. 4Non-bleeding internal hemorrhoids. Diverticulosis in the sigmoid colon. No specimens collected. Repeat in 5 years. 5persistent left bladder opacities. Atelectasis/scanning versus a minimal pneumonitis 6Pathology results: A) Colon, 50 cm, polypectomy: tubualr adenoma B) Colon, 20 cm, polypectomy: tubular adenoma. 7pertinent negatiaves include normal sphincter tone, no palpable rectal lesions and no anal lesion or abnormality was detected. A 10mm polyp qA DOUNS r 50cm proximal to the anus. One 12mm polyp proximal to the anus. Diverticulosis in he sigmoid colon, 8No definite acute intracranial abnormality. Asymmetric appearance of the left transverse sinus and sigmoid sinus in comparison to the right. This could be due to flow artifact. However, recommend follow up dedicated brain MRV or head CTA to exclude the less likely possibly of venous sinus thrombosis. These finds were called to the referring physicians office following dictation. 9No evidence of significant stenosis within the internal carotid arteries bilaterally. Antegrade flow in the bilateral vertebral arteries. Normal flow in the bilateral subclavian arteries. 10No acute bony abnormality. Cervical spinal cord is normal. Cervical spondylosis, greatest at C5-C6 and C6-C7. 11Unremarkable MR angiogram. Social History Social History Type Response Smoking Status Never smoked cigaret heber Sex Male Sex Representation Male (finding) Patient Care team information Care Team Personnel Name: SHU Copeland Tara Position: Nurse Pract - Family Med Member Role: Lifetime Relationship Address: [address] [facility] [place] [address] [place] Telecom: [phone] Name: MD Kody, Leslye Position: Physician - Pulmonary Med Member Role: Lifetime Relationship Address: [address] [facility] [address] [place] [address] [place] Telecom: [phone] Name: MD Mendoza, Nahun Position: Physician - Family Med Member Role: Primary Care Provider Address: [address] [place] [address] [place] Telecom: [phone] Care Team Related Persons Name: RADHA CASANOVA Insurance Providers Guarantor name: YUDY Joseph [facility] [employer] Plan Information #: 1 Payer: [employer] Member Number: [id number] Policy Number: NA Group Number: [id number] Health Plan Information #: 2 Payer: [employer] [facility] Member Number: NA Policy Number: NA Group Number: NA Health Plan Information #: 3 Payer: [employer] Member Number: NA Policy Number: NA Group Number: NA Health Plan Information #: 4 Payer: [employer] Member Number: [id number] Policy Number: NA Group Number: Health Plan Information #: 5 Payer: [employer] PCP ONLY Member Number: NA Policy Number: NA Group Number: NA
--- OUTSIDE RECORDS SUMMARY | 2024-07-17 14:48 | External Medical Summary | Continuity of Care Document ---
Author Name Unknown Organization [facility] [address] [place] [address] [place] [id number] Care Team Providers Care Senior Abap Developer Name Role Phone Nahun Donaldson Primary Care Physician [phone] Encounter [facility] [id number] Date(s): 02/12/24 - 02/12/24 [facility] 2017 [facility] [address], [address], [address] [place] [phone] Encounter Diagnosis Asthma(Discharge Diagnosis) - 02/12/24 Discharge Disposition: Home or Self Care Attending Physician: MD Spears Margaret M Referring Physician: MD Kody, Leslye Allergies, Adverse Reactions, Alerts Substance Criticality Severity [...] q6h, Disp# 1 each, Refills: 5, Pharmacy: [facility] Start Date: 02/12/24 Status: Ordered Augmentin 875 mg-125 mg oral tablet Start: 02/20/23 2:48:00 PM EDT, amoxicillin 1 tab, PO, q12h, Disp# 20, Pharmacy: [id number] Start Date: 02/20/23 Status: Ordered Dulera 200 mcg-5 mcg/inh inhalation aerosol Start: 02/12/24 11:14:00 AM EDT, See Instructions, Disp# 3 each, Refills: 3, 2 puff inhaled as needed for breaththrough symptoms- rinse mouth and throat after use, Pharmacy: [facility] Start Date: 02/12/24 Status: Ordered Flonase 50 mcg/inh nasal spray Start: 02/12/24 11:17:00 AM EDT, 2 spray, each nostril, bid, Disp# 3 each, Refills: 3, in each nostril shake well before using, Pharmacy: [facility] Start Date: 02/12/24 Status: Ordered [...] every day, rinse mouth after using, Pharmacy: [facility] Start Date: 02/12/24 Status: Ordered Problem List Condition Confirmation Course Effective Dates [...] Diagnosis Diagnosis Type Effective Dates Health Status Clini antoinette Service Informant Asthma Discharge Diagnosis 02/12/24 Non-Specified Procedures Procedure Date Related Diagnosis Body [...] at C5-C6 and C6-C7. 9Unremarkable MR angiogram. 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 [place] [address] [place] Care Team Related Persons Name: SOBIA PETERSON
--- OUTSIDE RECORDS SUMMARY | 2024-07-17 14:48 | External Medical Summary ---
Author Name Unknown Address Unknown Organization : Laboratory Report Ordering Provider Test Date Status Miya Lin 02/14/2024 10:37:00 Final Observation Date Value Abnormality Reference (Units ) Status Bacteria identified in Urine by Culture 02/16/2024 06:46:00 See Result Comment Final CULTURE, URINE, ROUTINE

Micro Number: [id number]
Test Status: Final
Specimen Source: Urine
Specimen Quality: Adequate
Result: No Growth

Specimen Received d/t: 02/15/2024 05:51:00

Lab test performed by:
[facility], [facility]
[address]
[place] [id number]
Julio Cesar Berumen MD Performing Location
[2024-07-17] MEDS: IBUPROFEN 600 MG TAB PO PRN (17:47)
[2024-07-17] MEDS: COUGH DROP (SUGAR FREE) LOZ 24 LOZ/1 BOX BUCCAL PRN (18:30)
[2024-07-17] MEDS: PANTOprazole 40 MG TAB PO SCH (19:24)
[2024-07-17] MEDS: MONTELUKAST SODIUM 10 MG TABLET PO SCH (21:42)
[2024-07-18 06:21] LABS: BUN Creatinine Ratio 19.6 (10-20); Calcium 8.2 mg/dl (8.6-10.3); Creatinine Clr Calc Pharmacy 91.3 ml/min; Potassium 4.2 mmol/L (3.5-5.1)
[2024-07-18] MEDS: ALBUT/IPRATROP 3MG/0.5MG NEB 3 ML VIAL NEB SCH (13:16)
--- NOTE | 2024-07-18 16:57 | Hospitalist Progress Note ---
Date of Service July 18, 2024 Assessment & Plan (1) Coronavirus infection: Plan: without hypoxia continue supportive and symptomatic care (2) Community acquired pneumonia: Plan: Continue Rocephin and Zithromax (3) Acute exacerbation of chronic obstructive airways disease: Plan: continue IV steroids, nebs Admission and Anticipated Discharge Date Admission Date: July 17, 2024 Subjective slowly improving, cough productive of sputum, c/o heart burn and sore throat, no fever, abd pain, N/V/D Physical Exam Physical Exam: General: Alert and oriented, no acute distress but flushed HEENT: Normocephalic, Cardio: Regular rate and rhythm, no murmur, Resp: Lungs b/l coarse BS GI: Soft and nontender, bowel sounds active Skin: Warm, pink, dry, Results & Data Results & Data Vital Signs (Past 12 Hours) Vital Signs Temp Pulse Pulse Pulse Resp BP Pulse Ox 07/18/24 15:57 72 07/18/24 15:39 36.8 C 71 20 143/71 H 91 07/18/24 13:19 77 18 94 07/18/24 12:09 67 07/18/24 11:35 36.4 C L 73 18 155/64 H 93 07/18/24 08:03 36.7 C 74 18 132/69 93 O2 Del Method 07/18/24 15:57 07/18/24 15:39 Room Air 07/18/24 13:19 Room Air 07/18/24 12:09 07/18/24 11:35 Room Air 07/18/24 08:03 Room Air PG Care Time/CCT Total # of Minutes Spent Total Time Spent with Patient: Total time spent is greater than 50% in coordination of care (as documented) at patient's floor/unit and/or counseling patient: Coding Level of Care Code 38339 SUB INP/OBS CARE 2/35MIN Diagnoses Coronavirus infection B34.2 Community acquired pneumonia of left lower lobe of lung J18.9 Laterality: left Lung location: lower lobe of lung Acute exacerbation of chronic obstructive airways disease J44.1 (2) Community acquired pneumonia Laterality: left Lung location: lower lobe of lung Qualified Code(s): J18.9 - Pneumonia, unspecified organism
[2024-07-19 07:06] LABS: Albumin Globulin Ratio 1.4 (0.9-2); Albumin Level 3.7 gm/dl (3.4-5.0); BUN Creatinine Ratio 21.7 (10-20); Bilirubin,Total 0.6 mg/dl (0.2-1.0); Calcium 8.1 mg/dl (8.6-10.3); Creatinine Clr Calc Pharmacy 101.4 ml/min; Globulin 2.7 gm/dl (2.5-4.0); Potassium 3.9 mmol/L (3.5-5.1); Total Protein 6.4 gm/dl (6.0-8.3)
[2024-07-19 07:49] VITALS: BP 143/76; RESP 19; TEMP 97.5; O2SAT 97
[2024-07-19 09:52] VITALS: PULSE 73
--- NOTE | 2024-07-19 10:18 | Discharge Summary ---
Discharge Summary Date of Service July 19, 2024 Principal Dx & Hospital Course #1 = Principal Diagnosis (1) Coronavirus infection: (2) Acute exacerbation of chronic obstructive airways disease: (3) Chronic obstructive pulmonary disease: Plan Pt is a 64 yo male with a past med hx of COPD not on oxygen at baseline and documented hx of vWBD who presents to the hospital on 07/17 for URI symptoms for 4-5 days and worsening SOB found to be positive for OG coronavirus. #COPD Exacerbation sec to Coronavirus infection (non covid19) with superimposed bacterial pneumonia No hypoxia improved with supportive and symptomatic care including IV steroids, nebs, mucolytics and antibiotics Discharged home on a course of prednisone, antibiotics and home bronchodilator regimen #Elevated bilirubin - elevated on admission 1.4 without transaminitis, direct bili wnl - resolved #Hyponatremia likely due to dehydration Resolved, encouraged PO intake Discharged home Admission HPI Per Admitting Provider Pt is a 64 yo male with a past med hx of COPD not on oxygen at baseline and documented hx of vWBD who presents to the hospital on 07/17 for URI symptoms for 4-5 days and worsening SOB found to be positive for OG coronavirus. Pt states he felt fine until about 4-5 days ago when he started with symptoms of cough, congestion, increased SOB, and chills. He states that yesterday evening he had worsening chills and felt febrile although he did not take his temp at home. He states that his chest hurts with coughing only and he just feels like it is harder to breathe compared to his baseline, prompting him to come in to be evaluated. He quit smoking over 30 years ago. He follows with [facility] pulmonology for his COPD. Alcohol use is occasional and social only. He states he saw his granddaughter yesterday who is only 4 weeks old but symptoms started before then. No symptoms diarrhea, no blood in stool or urine. Discharge Exam General: Alert and oriented, no acute distress but flushed HEENT: Normocephalic, Cardio: Regular rate and rhythm, no murmur, Resp: Lungs b/l much improved coarse BS GI: Soft and nontender, bowel sounds active Skin: Warm, pink, dry, Discharge Plan Discharge Items Patient Disposition: Home - Self-Care Reason For Visit: CORONAVIRUS, COPD EXAC Discharge Diagnosis: COVID 19, BACTERIAL PNEUMONIA, COPD EXACERBATION Condition on Discharge: Fair Activity: Resume your previous activity Non-emergency contact: Primary Care Provider Call non-emergency contact if: you have any medication questions and your symptoms worsen Follow-up/Referrals: Nahun Donaldson [Primary Care Provider] - Diet: Regular Addtl Attending Provider Instructions: FOLLOW UP WITH PRIMARY CARE IN 5-7 DAYS Pending Studies at Discharge: No Stand-Alone Forms: [facility] [employer], Smoking Cessation Medications and DC Order Prescriptions: New pantoprazole 40 mg Tablet,Delayed Release (Dr/Ec) 40 mg PO QAM Qty: 7 0RF albuterol sulfate [Ventolin HFA] 90 mcg/actuation Hfa Aerosol Inhaler 2 puff inhalation Q4H PRN (Reason: shortness of breath or wheezing) Qty: 8.5 0RF Anoro Ellipta 62.5-25 mcg/actuation Blister With Device 1 inh inhalation DAILY Qty: 60 0RF guaifenesin [Mucinex] 600 mg Tablet Extended Release 12hr 600 mg PO BID Qty: 6 0RF Arnuity Ellipta 200 mcg/actuation Blister With Device 1 inh inhalation DAILY Qty: 30 0RF montelukast 10 mg Tablet 10 mg PO HS Qty: 30 0RF azithromycin 500 mg tablet 500 mg PO QAM Qty: 3 0RF cefpodoxime 200 mg tablet 200 mg PO BID Qty: 10 0RF Rx Instructions: must administer with a meal/food prednisone 20 mg tablet 40 mg PO DAILY 3 Days Qty: 6 0RF Continued acetaminophen [Tylenol Extra Strength] 500 mg Tablet 1,000 mg PO Q6H PRN (Reason: Fever Or Pain) Discontinued NyQuil 7.5-60-30-1,000 mg/30 mL Liquid 30 ml PO UD PRN (Reason: flu like symptoms) Discharge Orders: Discharge Order (Routine); Ordered 07/19/24 Ordered By: Nathalie Marin Admission Data Admit Date/Time: 07/17/24 05:11 Attending Provider: Nathalie Marin Admit Provider: Katelin Alamo Primary Care Provider: Nahun Donaldson Other Providers: Ceasar Moreland Other Interventions: Discharge Summary Assessment (RN) Last Done: 07/19/24 09:51 Hospital Stay Data Consultations 07/17/24 04:20 ED Decision to Admit Stat Pending Results Patient Have Any Pending Studies at Discharge: No Discharge Instructions Given to Patient (Per Discharging Provider) FOLLOW UP WITH PRIMARY CARE IN 5-7 DAYS Total Time Total Time Spent Total Time Spent (In Minutes): 35min Coding Level of Care Code 04555 INP/OBS DISCH >30 MIN Diagnoses Coronavirus infection B34.2 Acute exacerbation of chronic obstructive airways disease J44.1 Chronic obstructive pulmonary disease J44.9
== END 2024-07-19 11:57 | disposition home or self-care (01) | DRG 865 ==
LOC: SUATTDRO → ED 02:30 → 2W 05:11 → SUATTDRO 05:11 → 2W 06:51